=== PATIENT | female | born 1950 | race Caucasian/White ===

== ENCOUNTER 2019-04-05 20:15 | Emergency (ER) | payer OTHER ==
--- NOTE | 2019-04-05 20:27 | PDOC ---
Rapid Medical Evaluation Time Seen by Provider: 04/05/19 20:24 Medical Evaluation: Allergies Allergy/AdvReac Type Severity Reaction Status Date / Time Penicillins Allergy Verified 04/03/19 09:09 streptomycin [Streptomycin] Allergy Verified 04/03/19 09:09 04/05/19 20:24 I have performed a brief in-person evaluation of this patient. The patient presents with a chief complaint of: SOB, "i can't breathe under my R nostril, all the time i was in the hospital i was spewing up white stuff. i'm ashamed to go to [facility] bc i was there 4 times". also seen by PCP. pt reports taking Spiriva rxed [facility] PCP but reports "i can't cough up everything." Pertinent physical exam findings: anxious appearing, cough, ran effortlessly into triage room when name was called I have ordered the following: cxr The patient will proceed to the ED for further evaluation.
[2019-04-05 20:28] VITALS: BP 138/72; TEMP 98; BMI 33.1
[2019-04-05] MEDS ORDERED: ALBUTEROL SO4 2.5/IPRATROPIUM 0.5 INH SOL 3 ML VIAL.NEB. NEB ONE ×2 (23:32→23:42)
[2019-04-05 23:49] VITALS: PULSE 96
--- NOTE | 2019-04-06 00:10 | PDOC ---
History of Present Illness - General Chief Complaint: Shortness of Breath Stated Complaint: BREATHING PROBLEM Time Seen by Provider: 04/05/19 20:24 History Source: Patient Exam Limitations: No Limitations Past History - Past Medical History Allergies/Adverse Reactions: Allergies Allergy/AdvReac Type Severity Reaction Status Date / Time Penicillins Allergy Verified 04/05/19 21:22 streptomycin [Streptomycin] Allergy Verified 04/05/19 21:22 Home Medications: Ambulatory Orders Atorvastatin Ca [Lipitor] 20 mg PO HS #0 tablet 10/03/12 Clopidogrel Bisulfate [Plavix -] 75 mg PO DAILY #0 tablet 10/03/12 Metoprolol Succinate [Toprol XL -] 25 mg PO DAILY #0 tab.sr.24h 10/03/12 Levetiracetam [Keppra] 500 mg PO BID 02/10/16 Olmesartan Medoxomil [Benicar -] 20 mg PO DAILY 02/10/16 Acetaminophen [Tylenol .Regular Strength -] 650 mg PO Q6H PRN #0 tablet Clopidogrel Bisulfate [Plavix -] 75 mg PO DAILY tablet 02/11/16 Metoprolol Succinate [Toprol XL -] 25 mg PO DAILY tab.sr.24h 02/11/16 levETIRAcetam [Keppra -] 500 mg PO BID tablet 02/11/16 Cardiac Disorders: Yes CVA: (MINI STROKES) COPD: Yes Diabetes: No HTN: Yes Kidney Stones: Yes Seizures: Yes Thyroid Disease: Yes (thyroidectomy) - Surgical History Cardiac Surgery: (CAROTID ARTERY STENT) - Immunization History Immunization Up to Date: Yes - Suicide/Smoking/Psychosocial Hx Smoking Status: Yes Smoking History: Unknown if ever smoked Have you smoked in the past 12 months: No Number of Cigarettes Smoked Daily: 20 Information on smoking cessation initiated: No 'Breaking Loose' booklet given: 02/10/16 Hx Alcohol Use: No Drug/Substance Use Hx: No Substance Use Type: None *Physical Exam - Vital Signs Last Vital Signs Temp Pulse Resp BP Pulse Ox 98.0 F 96 H 20 138/72 100 04/05/19 20:25 04/05/19 23:48 04/05/19 23:48 04/05/19 20:25 04/05/19 23:48 - Physical Exam General Appearance: No: Apparent Distress HEENT: positive: Pharynx Normal. negative: Nasal Congestion, Rhinorrhea, Sinus Tenderness Respiratory/Chest: positive: Lungs Clear, Normal Breath Sounds. negative: Respiratory Distress Cardiovascular: positive: Regular Rhythm, Regular Rate, S1, S2. negative: Murmur Gastrointestinal/Abdominal: positive: Normal Bowel Sounds, Soft. negative: Tender, Distended, Guarding, Rebound Musculoskeletal: positive: Normal Inspection Extremity: negative: Pedal Edema, Calf Tenderness Neurologic: positive: Alert, Normal Mood/Affect ED Treatment Course - Medications Given in the ED: ED Medications Discontinued Medications Generic Name Dose Route Start Last Admin Trade Name Freq PRN Reason Stop Dose Admin Albuterol/Ipratropium 1 amp 04/05/19 23:32 04/05/19 23:48 Duoneb - NEB 04/05/19 23:33 1 amp ONCE ONE Administration Medical Decision Making - Medical Decision Making 68 y/o F hx of L carotid artery stent, TIA x3, HTN, DM, seizures, COPD presents as could not breath out of her R nose. States she has been hospitalized in the past for COPD and was concerned so came to ED. Denies fever, sneezing, rhinorrhea, throat pain, cp, abd pain, n/v, leg swelling. Mentions she has been using saline nasal spray and while waiting, she is now feeling better with the congestion Lungs clear CXR negative Patient demanded duoneb treatment stating she will feel more comfortable leaving after receiving the treatment On reassessment, patient mentions feeling better Stable for dc 04/06/19 00:07 *DC/Admit/Observation/Transfer Diagnosis at time of Disposition: Nasal congestion - Discharge Dispostion Disposition: HOME Condition at time of disposition: Stable Decision to Admit order: No - Referrals Referrals: Francis Acosta MD [Primary Care Provider] - 2 Days - Patient Instructions Printed Discharge Instructions: DI for Nasal Congestion Additional Instructions: Thank you for choosing [facility]. It was a pleasure taking care of you. Continue use of saline nasal spray to help with nasal congestion Follow-up with your doctor in 2 days Return to the Emergency Department if your symptoms worsen or persist, you have fever, shortness of breath, chest pain or other concerning symptoms. - Post Discharge Activity
--- NOTE | 2019-04-06 00:22 | PDOC ---
*Physical Exam - Vital Signs Last Vital Signs Temp Pulse Resp BP Pulse Ox 98.0 F 96 H 20 138/72 100 04/05/19 20:25 04/05/19 23:48 04/05/19 23:48 04/05/19 20:25 04/05/19 23:48 ED Treatment Course - Medications Given in the ED: ED Medications Discontinued Medications Generic Name Dose Route Start Last Admin Trade Name Freq PRN Reason Stop Dose Admin Albuterol/Ipratropium 1 amp 04/05/19 23:32 04/05/19 23:48 Duoneb - NEB 04/05/19 23:33 1 amp ONCE ONE Administration Medical Decision Making - Medical Decision Making 04/06/19 00:22 Case reviewed with MIKE Winston Agree with assessment and plan *DC/Admit/Observation/Transfer Diagnosis at time of Disposition: Nasal congestion - Discharge Dispostion Disposition: HOME Condition at time of disposition: Stable - Referrals Referrals: Francis Acosta MD [Primary Care Provider] - 2 Days - Patient Instructions Printed Discharge Instructions: DI for Nasal Congestion Additional Instructions: Thank you for choosing [facility]. It was a pleasure taking care of you. Continue use of saline nasal spray to help with nasal congestion Follow-up with your doctor in 2 days Return to the Emergency Department if your symptoms worsen or persist, you have fever, shortness of breath, chest pain or other concerning symptoms. - Post Discharge Activity
== END 2019-04-06 00:15 | disposition home or self-care (01) ==
LOC: JER 20:15
PROC: 3E0F7GC Introduction of Other Therapeutic Substance into Respiratory Tract, Via Natural or Artificial Opening (ICD-10-PCS; principal; 2019-04-05)
DX: J34.89 Other specified disorders of nose and nasal sinuses (principal); I25.10 Atherosclerotic heart disease of native coronary artery without angina pectoris; I10 Essential (primary) hypertension; J44.9 Chronic obstructive pulmonary disease, unspecified; G40.909 Epilepsy, unspecified, not intractable, without status epilepticus; Z86.73 Personal history of transient ischemic attack (TIA), and cerebral infarction without residual deficits; E89.0 Postprocedural hypothyroidism
CPT/HCPCS: 71046-TC-FY; 99281-25

== ENCOUNTER 2021-08-13 13:06 | Emergency (ER) | payer OTHER ==
[2021-08-13 13:17] VITALS: BP 128/94; PULSE 98; TEMP 97.8; BMI 24.7
== END 2021-08-13 14:56 | disposition home or self-care (01) ==
LOC: JERFT 13:06
DX: R22.31 Localized swelling, mass and lump, right upper limb (principal); L03.011 Cellulitis of right finger
CPT/HCPCS: 73130-TC-RT-FY; 99283-25

== ENCOUNTER 2022-04-29 13:50 | Inpatient (IN) | payer OTHER ==
[2022-04-29] MEDS ORDERED: ACETAMINOPHEN 1000 MG/100 ML BAG IVPB ONE (15:17)
[2022-04-29] MEDS ORDERED: ACETAMINOPHEN INJECTION 100 ML IVPB ONE (15:40)
[2022-04-29 16:56] LABS: CALCIUM 8.7 mg/dL (8.5-10.1)
[2022-04-29 16:57] LABS: ALBUMIN 3.4 g/dl (3.4-5.0); BLOOD UREA NITROGEN 10.4 mg/dL (7-18)
[2022-04-29 17:02] LABS: BILIRUBIN,TOTAL 0.4 mg/dL (0.2-1); TOT PROT 7.2 g/dl (6.4-8.2)
[2022-04-29 17:09] LABS: BASO % 0.4 % (0-2.0); LYMPH % 24.4 % (8-40); MCH 30.3 pg (25.7-33.7); MCHC 34.3 g/dl (32.0-36.0); MEAN CELL VOLUME 88.4 fl (80-96); MEAN PLT VOLUME 8.3 fl (7.5-11.1); MONO % 10.3 % (3.8-10.2); NEUT % 62.9 % (42.8-82.8); PLATELET COUNT 263 10^3/uL (134-434); RDW 14.5 % (11.6-15.6); WHITE BLOOD COUNT 5.3 K/mm3 (4.0-10.0)
[2022-04-29 17:15] LABS: INR 1.06 (0.83-1.09); PROTHROMBIN TIME (PATIENT) 12.2 SEC (9.7-13.0)
[2022-04-29 17:18] LABS: ACTIVATED PTT 34.7 SECONDS (25.2-36.5)
[2022-04-29] MEDS ORDERED: CEFTRIAXONE 1 GM in DEXTROSE 5%-WATER - 100 ML IVPB ONE (20:49)
[2022-04-29] MEDS ORDERED: CEFTRIAXONE 1 GM/50 ML BAG ONE (21:12)
[2022-04-29] MEDS ORDERED: POLYETHYLENE GLYCOL (HEALTHYLAX) 3350 17 GM PACKET PO PRN (22:03)
[2022-04-29] MEDS ORDERED: ALBUTEROL SO4 HFA INHALER IH PRN (22:20)
[2022-04-29] MEDS ORDERED: CARVEDILOL 6.25 MG TABLET (FP) ONE (23:40)
[2022-04-29] MEDS: CARVEDILOL 6.25 MG TABLET (FP) PO SCH (23:44)
[2022-04-30] MEDS: ACETAMINOPHEN 1000 MG/100 ML BAG IVPB PRN ×3 (02:50→21:23)
[2022-04-30] MEDS: HEPARIN NA (PORCINE) 5,000 UNITS/ML 1ML VIAL SQ SCH ×3 (06:20→21:24)
[2022-04-30] MEDS: glipiZIDE-XL 2.5 MG TAB.ER.24 PO SCH (06:20)
[2022-04-30] MEDS: INSULIN SLIDING SCALE (NOVOLOG) 1 VIAL SQ SCH ×4 (06:20→21:24)
[2022-04-30] MEDS: TAMSULOSIN HCL 0.4 MG CAP PO SCH ×2 (08:21→08:24)
[2022-04-30 09:32] LABS: BASO % 0.2 % (0-2.0); EOS % 2.1 % (0-4.5); HEMATOCRIT 37.9 % (32.4-45.2); HEMOGLOBIN 12.8 GM/dL (10.7-15.3); LYMPH % 22.5 % (8-40); MCH 30.2 pg (25.7-33.7); MCHC 33.8 g/dl (32.0-36.0); MEAN CELL VOLUME 89.2 fl (80-96); MEAN PLT VOLUME 8.6 fl (7.5-11.1); MONO % 14.4 % (3.8-10.2); NEUT % 60.8 % (42.8-82.8); PLATELET COUNT 239 10^3/uL (134-434); RBC 4.25 M/mm3 (3.60-5.2); RDW 14.4 % (11.6-15.6); WHITE BLOOD COUNT 3.9 K/mm3 (4.0-10.0)
[2022-04-30 10:16] LABS: CALCIUM 8.8 mg/dL (8.5-10.1)
[2022-04-30 10:17] LABS: BLOOD UREA NITROGEN 15.1 mg/dL (7-18); MAGNESIUM 2.5 mg/dL (1.8-2.4)
[2022-04-30 10:20] LABS: CREATININE 1.1 mg/dL (0.55-1.3)
[2022-04-30] MEDS: CARVEDILOL 6.25 MG TABLET (FP) PO SCH ×2 (11:45→21:23)
[2022-04-30] MEDS: FUROSEMIDE 40 MG TABLET (FP) PO SCH (11:45)
[2022-04-30] MEDS: CLOPIDOGREL BISULFATE 75 MG TABLET (FP) PO SCH (11:45)
[2022-04-30] MEDS: FAMOTIDINE 20 MG TABLET PO SCH (11:45)
[2022-04-30] MEDS: levETIRAcetam 500 MG TABLET (FP) PO SCH ×2 (11:45→21:23)
[2022-04-30] MEDS: TIOTROPIUM BROMIDE 2.5 MCG (SPIRIVA) RESPIMAT INHALER IH SCH (13:30)
[2022-04-30] MEDS ORDERED: traMADol HCL 50 MG TABLET PO PRN (13:43)
[2022-04-30] MEDS ORDERED: cefTRIAXone SODIUM 1 GM VIAL ONE (21:06)
[2022-04-30] MEDS ORDERED: DEXTROSE 5%-WATER - 50 ML IVPB ONE (21:06)
[2022-04-30] MEDS: ATORVASTATIN CA 20 MG TABLET (FP) PO SCH (21:23)
[2022-04-30] MEDS: DIVALPROEX SODIUM 250 MG TABLET E.C. PO SCH (21:23)
[2022-04-30] MEDS: CEFTRIAXONE 1 GM in DEXTROSE 5%-WATER - 50 ML IVPB SCH (21:25)
[2022-04-30] MEDS ORDERED: ACETAMINOPHEN 325 MG TABLET (FP) PO PRN (22:03)
[2022-05-01] MEDS: HEPARIN NA (PORCINE) 5,000 UNITS/ML 1ML VIAL SQ SCH ×3 (06:04→21:46)
[2022-05-01] MEDS: INSULIN SLIDING SCALE (NOVOLOG) 1 VIAL SQ SCH ×4 (06:04→21:46)
[2022-05-01] MEDS: glipiZIDE-XL 2.5 MG TAB.ER.24 PO SCH (06:04)
[2022-05-01] MEDS: TAMSULOSIN HCL 0.4 MG CAP PO SCH (08:22)
[2022-05-01] MEDS: CLOPIDOGREL BISULFATE 75 MG TABLET (FP) PO SCH (09:11)
[2022-05-01] MEDS: FUROSEMIDE 40 MG TABLET (FP) PO SCH (09:11)
[2022-05-01] MEDS: levETIRAcetam 500 MG TABLET (FP) PO SCH ×2 (09:11→21:46)
[2022-05-01] MEDS: FAMOTIDINE 20 MG TABLET PO SCH (09:11)
[2022-05-01] MEDS: CARVEDILOL 6.25 MG TABLET (FP) PO SCH ×2 (09:11→21:45)
[2022-05-01] MEDS: TIOTROPIUM BROMIDE 2.5 MCG (SPIRIVA) RESPIMAT INHALER IH SCH (09:13)
[2022-05-01] MEDS ORDERED: cefTRIAXone SODIUM 1 GM VIAL ONE (21:36)
[2022-05-01] MEDS ORDERED: DEXTROSE 5%-WATER - 50 ML IVPB ONE (21:36)
[2022-05-01] MEDS: DIVALPROEX SODIUM 250 MG TABLET E.C. PO SCH (21:46)
[2022-05-01] MEDS: ATORVASTATIN CA 20 MG TABLET (FP) PO SCH (21:46)
[2022-05-01] MEDS: CEFTRIAXONE 1 GM in DEXTROSE 5%-WATER - 50 ML IVPB SCH (21:46)
[2022-05-02] MEDS: INSULIN SLIDING SCALE (NOVOLOG) 1 VIAL SQ SCH ×4 (06:22→21:47)
[2022-05-02] MEDS: HEPARIN NA (PORCINE) 5,000 UNITS/ML 1ML VIAL SQ SCH ×2 (06:23→14:19)
[2022-05-02] MEDS: glipiZIDE-XL 2.5 MG TAB.ER.24 PO SCH (06:23)
[2022-05-02] MEDS: TAMSULOSIN HCL 0.4 MG CAP PO SCH (08:13)
[2022-05-02] MEDS: CARVEDILOL 6.25 MG TABLET (FP) PO SCH ×2 (10:53→21:46)
[2022-05-02] MEDS: FAMOTIDINE 20 MG TABLET PO SCH (10:53)
[2022-05-02] MEDS: FUROSEMIDE 40 MG TABLET (FP) PO SCH (10:53)
[2022-05-02] MEDS: CLOPIDOGREL BISULFATE 75 MG TABLET (FP) PO SCH (10:53)
[2022-05-02] MEDS: levETIRAcetam 500 MG TABLET (FP) PO SCH ×2 (10:53→21:46)
[2022-05-02] MEDS: TIOTROPIUM BROMIDE 2.5 MCG (SPIRIVA) RESPIMAT INHALER IH SCH (10:54)
[2022-05-02] MEDS: DIVALPROEX SODIUM 250 MG TABLET E.C. PO SCH (21:46)
[2022-05-02] MEDS: ATORVASTATIN CA 20 MG TABLET (FP) PO SCH (21:46)
[2022-05-03] MEDS: INSULIN SLIDING SCALE (NOVOLOG) 1 VIAL SQ SCH ×4 (06:50→21:51)
[2022-05-03] MEDS: glipiZIDE-XL 2.5 MG TAB.ER.24 PO SCH (06:51)
[2022-05-03] MEDS: FAMOTIDINE 20 MG TABLET PO SCH (10:32)
[2022-05-03] MEDS: levETIRAcetam 500 MG TABLET (FP) PO SCH ×2 (10:32→21:50)
[2022-05-03] MEDS: CARVEDILOL 6.25 MG TABLET (FP) PO SCH ×2 (10:32→21:50)
[2022-05-03] MEDS: CLOPIDOGREL BISULFATE 75 MG TABLET (FP) PO SCH (10:32)
[2022-05-03] MEDS: FUROSEMIDE 40 MG TABLET (FP) PO SCH (10:32)
[2022-05-03] MEDS: TAMSULOSIN HCL 0.4 MG CAP PO SCH (10:32)
[2022-05-03] MEDS: TIOTROPIUM BROMIDE 2.5 MCG (SPIRIVA) RESPIMAT INHALER IH SCH (10:33)
[2022-05-03] MEDS: ATORVASTATIN CA 20 MG TABLET (FP) PO SCH (21:50)
[2022-05-03] MEDS: DIVALPROEX SODIUM 250 MG TABLET E.C. PO SCH (21:51)
[2022-05-04] MEDS: INSULIN SLIDING SCALE (NOVOLOG) 1 VIAL SQ SCH ×3 (06:04→16:54)
[2022-05-04] MEDS: glipiZIDE-XL 2.5 MG TAB.ER.24 PO SCH (06:23)
[2022-05-04] MEDS: CLOPIDOGREL BISULFATE 75 MG TABLET (FP) PO SCH (10:14)
[2022-05-04] MEDS: levETIRAcetam 500 MG TABLET (FP) PO SCH ×2 (10:14→21:20)
[2022-05-04] MEDS: TIOTROPIUM BROMIDE 2.5 MCG (SPIRIVA) RESPIMAT INHALER IH SCH (10:14)
[2022-05-04] MEDS: TAMSULOSIN HCL 0.4 MG CAP PO SCH (10:14)
[2022-05-04] MEDS: FAMOTIDINE 20 MG TABLET PO SCH (10:14)
[2022-05-04] MEDS: CARVEDILOL 6.25 MG TABLET (FP) PO SCH ×2 (10:14→21:20)
[2022-05-04] MEDS: FUROSEMIDE 40 MG TABLET (FP) PO SCH (10:14)
[2022-05-04 13:02] LABS: BASO % 0.4 % (0-2.0); EOS % 1.5 % (0-4.5); HEMATOCRIT 37.3 % (32.4-45.2); HEMOGLOBIN 12.8 GM/dL (10.7-15.3); LYMPH % 23.2 % (8-40); MCH 30.7 pg (25.7-33.7); MCHC 34.4 g/dl (32.0-36.0); MEAN CELL VOLUME 89.3 fl (80-96); MEAN PLT VOLUME 7.9 fl (7.5-11.1); MONO % 10.7 % (3.8-10.2); NEUT % 64.2 % (42.8-82.8); PLATELET COUNT 304 10^3/uL (134-434); RBC 4.18 M/mm3 (3.60-5.2); RDW 14.2 % (11.6-15.6); WHITE BLOOD COUNT 5.4 K/mm3 (4.0-10.0)
[2022-05-04 13:43] LABS: ALBUMIN 3.5 g/dl (3.4-5.0)
[2022-05-04 13:44] LABS: BLOOD UREA NITROGEN 19.7 mg/dL (7-18)
[2022-05-04 13:47] LABS: CREATININE 0.7 mg/dL (0.55-1.3)
[2022-05-04 13:48] LABS: BILIRUBIN,TOTAL 0.3 mg/dL (0.2-1); TOT PROT 7.4 g/dl (6.4-8.2)
[2022-05-04 13:52] LABS: ERYTHROCYTE SEDIMENTATION RATE 23 mm/hr (0-30)
[2022-05-04] MEDS: ATORVASTATIN CA 20 MG TABLET (FP) PO SCH (21:20)
[2022-05-04] MEDS: DIVALPROEX SODIUM 250 MG TABLET E.C. PO SCH (21:20)
[2022-05-05] MEDS: glipiZIDE-XL 2.5 MG TAB.ER.24 PO SCH (06:49)
[2022-05-05] MEDS: INSULIN SLIDING SCALE (NOVOLOG) 1 VIAL SQ SCH ×2 (06:49→17:56)
[2022-05-05] MEDS: FAMOTIDINE 20 MG TABLET PO SCH (09:39)
[2022-05-05] MEDS: TAMSULOSIN HCL 0.4 MG CAP PO SCH (09:39)
[2022-05-05] MEDS: levETIRAcetam 500 MG TABLET (FP) PO SCH ×2 (09:40→22:09)
[2022-05-05] MEDS: TIOTROPIUM BROMIDE 2.5 MCG (SPIRIVA) RESPIMAT INHALER IH SCH (09:40)
[2022-05-05] MEDS: CARVEDILOL 6.25 MG TABLET (FP) PO SCH (11:08)
[2022-05-05] MEDS: FUROSEMIDE 40 MG TABLET (FP) PO SCH (11:14)
[2022-05-05] MEDS: CLOPIDOGREL BISULFATE 75 MG TABLET (FP) PO SCH (11:14)
[2022-05-05] MEDS ORDERED: CARVEDILOL 6.25 MG TABLET (FP) PO SCH (14:20)
[2022-05-05] MEDS ORDERED: FUROSEMIDE 40 MG TABLET (FP) PO SCH (14:21)
[2022-05-05] MEDS: ATORVASTATIN CA 20 MG TABLET (FP) PO SCH (22:09)
[2022-05-05] MEDS: DIVALPROEX SODIUM 250 MG TABLET E.C. PO SCH (22:09)
[2022-05-06] MEDS: INSULIN SLIDING SCALE (NOVOLOG) 1 VIAL SQ SCH ×2 (06:07→17:34)
[2022-05-06] MEDS: glipiZIDE-XL 2.5 MG TAB.ER.24 PO SCH (06:09)
[2022-05-06] MEDS ORDERED: LIDOCAINE HCL/PF 2% SDV 5ML VIAL ONE (07:05)
[2022-05-06] MEDS ORDERED: SUCCINYLCHOLINE CHLORIDE 200 MG/10 ML SYRINGE ONE (07:06)
[2022-05-06] MEDS ORDERED: MIDAZOLAM HCL 2 MG/2 ML SINGLE DOSE VIAL ONE (07:06)
[2022-05-06] MEDS ORDERED: PROPOFOL 20 ML ONE (07:06)
[2022-05-06] MEDS ORDERED: LIDOCAINE HCL 1%, 10 MG/ML (20ML VIAL) ONE (07:14)
[2022-05-06] MEDS ORDERED: HEPARIN NA (PORCINE) 5,000 UNITS/ML 1ML VIAL ONE (07:14)
[2022-05-06] MEDS ORDERED: CLINDAMYCIN 600 MG PREMIX BAG IVPB ONE (08:20)
[2022-05-06] MEDS ORDERED: CLINDAMYCIN PHOSPHATE 600 MG/4 ML VIAL ONE (08:26)
[2022-05-06] MEDS: TAMSULOSIN HCL 0.4 MG CAP PO SCH (08:30)
[2022-05-06] MEDS ORDERED: LIDOCAINE HCL 1%, 10 MG/ML (20ML VIAL) NR ONE ×2 (08:32)
[2022-05-06] MEDS ORDERED: HEPARIN NA (PORCINE) 5,000 UNITS/ML 1ML VIAL SQ ONE (08:36)
[2022-05-06] MEDS ORDERED: POLYETHYLENE GLYCOL (HEALTHYLAX) 3350 17 GM PACKET PO PRN (09:15)
[2022-05-06] MEDS ORDERED: ACETAMINOPHEN 325 MG TABLET (FP) PO PRN (09:15)
[2022-05-06] MEDS ORDERED: ALBUTEROL SO4 HFA INHALER IH PRN (09:15)
[2022-05-06] MEDS: FUROSEMIDE 40 MG TABLET (FP) PO SCH (10:58)
[2022-05-06] MEDS ORDERED: ONDANSETRON 4 MG/2 ML VIAL IVPUSH PRN (10:59)
[2022-05-06] MEDS: levETIRAcetam 500 MG TABLET (FP) PO SCH ×2 (10:59→21:05)
[2022-05-06] MEDS: CARVEDILOL 6.25 MG TABLET (FP) PO SCH ×2 (10:59→21:04)
[2022-05-06] MEDS: TIOTROPIUM BROMIDE 2.5 MCG (SPIRIVA) RESPIMAT INHALER IH SCH (11:00)
[2022-05-06] MEDS: FAMOTIDINE 20 MG TABLET PO SCH (11:04)
[2022-05-06] MEDS: LACTATED RINGERS SOLUTION 1,000 ML IV SCH ×2 (11:36→19:56)
[2022-05-06] MEDS: DIVALPROEX SODIUM 250 MG TABLET E.C. PO SCH (21:05)
[2022-05-06] MEDS: ATORVASTATIN CA 20 MG TABLET (FP) PO SCH (21:05)
[2022-05-07] MEDS: INSULIN SLIDING SCALE (NOVOLOG) 1 VIAL SQ SCH (07:14)
[2022-05-07] MEDS: glipiZIDE-XL 2.5 MG TAB.ER.24 PO SCH (07:15)
[2022-05-07] MEDS: TAMSULOSIN HCL 0.4 MG CAP PO SCH (10:43)
[2022-05-07] MEDS: FAMOTIDINE 20 MG TABLET PO SCH (10:44)
[2022-05-07] MEDS: levETIRAcetam 500 MG TABLET (FP) PO SCH ×2 (10:44→21:30)
[2022-05-07] MEDS: CARVEDILOL 6.25 MG TABLET (FP) PO SCH ×2 (10:44→21:30)
[2022-05-07] MEDS: FUROSEMIDE 40 MG TABLET (FP) PO SCH (10:44)
[2022-05-07] MEDS: TIOTROPIUM BROMIDE 2.5 MCG (SPIRIVA) RESPIMAT INHALER IH SCH (10:45)
[2022-05-07] MEDS ORDERED: levETIRAcetam 500 MG TABLET (FP) PO SCH (14:00)
[2022-05-07] MEDS: ATORVASTATIN CA 20 MG TABLET (FP) PO SCH (21:30)
[2022-05-07] MEDS: DIVALPROEX SODIUM 250 MG TABLET E.C. PO SCH (21:30)
[2022-05-08] MEDS: glipiZIDE-XL 2.5 MG TAB.ER.24 PO SCH (07:14)
[2022-05-08] MEDS: levETIRAcetam 500 MG TABLET (FP) PO SCH ×2 (09:31→22:06)
[2022-05-08] MEDS: TAMSULOSIN HCL 0.4 MG CAP PO SCH (09:32)
[2022-05-08] MEDS: FAMOTIDINE 20 MG TABLET PO SCH (09:33)
[2022-05-08] MEDS: CARVEDILOL 6.25 MG TABLET (FP) PO SCH ×2 (09:33→22:06)
[2022-05-08] MEDS: FUROSEMIDE 40 MG TABLET (FP) PO SCH (09:33)
[2022-05-08] MEDS: TIOTROPIUM BROMIDE 2.5 MCG (SPIRIVA) RESPIMAT INHALER IH SCH (13:13)
[2022-05-08] MEDS ORDERED: levETIRAcetam 500 MG TABLET (FP) PO ONE ×2 (14:30)
[2022-05-08] MEDS ORDERED: LORazepam 2 MG/ML SDV VIAL IVPUSH PRN (16:12)
[2022-05-08] MEDS: ATORVASTATIN CA 20 MG TABLET (FP) PO SCH (22:06)
[2022-05-08] MEDS: DIVALPROEX SODIUM 250 MG TABLET E.C. PO SCH (22:06)
[2022-05-09] MEDS: glipiZIDE-XL 2.5 MG TAB.ER.24 PO SCH (06:00)
[2022-05-09] MEDS: TAMSULOSIN HCL 0.4 MG CAP PO SCH (09:49)
[2022-05-09] MEDS: CARVEDILOL 6.25 MG TABLET (FP) PO SCH ×2 (09:49→21:14)
[2022-05-09] MEDS: FAMOTIDINE 20 MG TABLET PO SCH (09:49)
[2022-05-09] MEDS: FUROSEMIDE 40 MG TABLET (FP) PO SCH (09:49)
[2022-05-09] MEDS: levETIRAcetam 500 MG TABLET (FP) PO SCH ×2 (09:49→21:14)
[2022-05-09] MEDS: TIOTROPIUM BROMIDE 2.5 MCG (SPIRIVA) RESPIMAT INHALER IH SCH (09:51)
[2022-05-09] MEDS: DIVALPROEX SODIUM 500 MG TABLET E.C. PO SCH ×2 (13:08→21:14)
[2022-05-09] MEDS: ATORVASTATIN CA 20 MG TABLET (FP) PO SCH (21:14)
[2022-05-10] MEDS: glipiZIDE-XL 2.5 MG TAB.ER.24 PO SCH (06:08)
[2022-05-10 09:47] LABS: BASO % 0.8 % (0-2.0); EOS % 1.3 % (0-4.5); HEMATOCRIT 40.4 % (32.4-45.2); HEMOGLOBIN 13.5 GM/dL (10.7-15.3); LYMPH % 27.7 % (8-40); MCH 29.9 pg (25.7-33.7); MCHC 33.4 g/dl (32.0-36.0); MEAN CELL VOLUME 89.6 fl (80-96); MEAN PLT VOLUME 8.2 fl (7.5-11.1); MONO % 7.8 % (3.8-10.2); NEUT % 62.4 % (42.8-82.8); PLATELET COUNT 345 10^3/uL (134-434); RBC 4.51 M/mm3 (3.60-5.2); RDW 14.4 % (11.6-15.6); WHITE BLOOD COUNT 5.8 K/mm3 (4.0-10.0)
[2022-05-10 10:04] LABS: INR 1.03 (0.83-1.09); PROTHROMBIN TIME (PATIENT) 11.8 SEC (9.7-13.0)
[2022-05-10 10:06] LABS: CALCIUM 9.2 mg/dL (8.5-10.1)
[2022-05-10 10:07] LABS: ALBUMIN 3.4 g/dl (3.4-5.0); BLOOD UREA NITROGEN 18.1 mg/dL (7-18)
[2022-05-10 10:10] LABS: CREATININE 0.8 mg/dL (0.55-1.3)
[2022-05-10 10:11] LABS: BILIRUBIN,TOTAL 0.4 mg/dL (0.2-1); TOT PROT 7.4 g/dl (6.4-8.2)
[2022-05-10] MEDS: FUROSEMIDE 40 MG TABLET (FP) PO SCH (11:06)
[2022-05-10] MEDS: DIVALPROEX SODIUM 500 MG TABLET E.C. PO SCH ×2 (11:06→21:35)
[2022-05-10] MEDS: FAMOTIDINE 20 MG TABLET PO SCH (11:06)
[2022-05-10] MEDS: TAMSULOSIN HCL 0.4 MG CAP PO SCH (11:06)
[2022-05-10] MEDS: CARVEDILOL 6.25 MG TABLET (FP) PO SCH ×2 (11:06→21:35)
[2022-05-10] MEDS: levETIRAcetam 500 MG TABLET (FP) PO SCH ×2 (11:06→21:35)
[2022-05-10] MEDS: TIOTROPIUM BROMIDE 2.5 MCG (SPIRIVA) RESPIMAT INHALER IH SCH (12:38)
[2022-05-10] MEDS: ATORVASTATIN CA 20 MG TABLET (FP) PO SCH (21:35)
[2022-05-11] MEDS: glipiZIDE-XL 2.5 MG TAB.ER.24 PO SCH (06:07)
[2022-05-11] MEDS: FUROSEMIDE 40 MG TABLET (FP) PO SCH (10:13)
[2022-05-11] MEDS: CARVEDILOL 6.25 MG TABLET (FP) PO SCH ×2 (10:14→21:46)
[2022-05-11] MEDS: FAMOTIDINE 20 MG TABLET PO SCH (10:14)
[2022-05-11] MEDS: DIVALPROEX SODIUM 500 MG TABLET E.C. PO SCH ×2 (10:14→21:46)
[2022-05-11] MEDS: levETIRAcetam 500 MG TABLET (FP) PO SCH ×2 (10:14→21:46)
[2022-05-11] MEDS: TAMSULOSIN HCL 0.4 MG CAP PO SCH (10:14)
[2022-05-11] MEDS: TIOTROPIUM BROMIDE 2.5 MCG (SPIRIVA) RESPIMAT INHALER IH SCH (10:16)
[2022-05-11] MEDS ORDERED: LIDOCAINE HCL 1%, 10 MG/ML (20ML VIAL) ONE ×2 (14:25→14:28)
[2022-05-11] MEDS ORDERED: BUPIVACAINE HCL/PF 0.25% (2.5MG/ML) 10 ML VIAL ONE (14:25)
[2022-05-11] MEDS ORDERED: MIDAZOLAM HCL 2 MG/2 ML SINGLE DOSE VIAL ONE (15:00)
[2022-05-11] MEDS ORDERED: LIDOCAINE HCL 1%, 10 MG/ML (20ML VIAL) NR ONE (15:08)
[2022-05-11] MEDS ORDERED: ALBUTEROL SO4 HFA INHALER IH PRN (18:16)
[2022-05-11] MEDS ORDERED: ACETAMINOPHEN 325 MG TABLET (FP) PO PRN (18:16)
[2022-05-11] MEDS ORDERED: POLYETHYLENE GLYCOL (HEALTHYLAX) 3350 17 GM PACKET PO PRN (18:16)
[2022-05-11] MEDS ORDERED: ATORVASTATIN CA 20 MG TABLET (FP) PO SCH (22:00)
[2022-05-12] MEDS ORDERED: glipiZIDE-XL 2.5 MG TAB.ER.24 PO SCH (07:00)
[2022-05-12] MEDS ORDERED: TAMSULOSIN HCL 0.4 MG CAP PO SCH (08:30)
[2022-05-12] MEDS: DIVALPROEX SODIUM 500 MG TABLET E.C. PO SCH (09:51)
[2022-05-12] MEDS: levETIRAcetam 500 MG TABLET (FP) PO SCH (09:51)
[2022-05-12] MEDS: CARVEDILOL 6.25 MG TABLET (FP) PO SCH (09:51)
[2022-05-12] MEDS ORDERED: FUROSEMIDE 40 MG TABLET (FP) PO SCH (10:00)
[2022-05-12] MEDS ORDERED: FAMOTIDINE 20 MG TABLET PO SCH (10:00)
[2022-05-12] MEDS ORDERED: TIOTROPIUM BROMIDE 2.5 MCG (SPIRIVA) RESPIMAT INHALER IH SCH (10:00)
[2022-05-12 11:52] VITALS: BMI 25.8
[2022-05-12 15:00] VITALS: BP 101/55; PULSE 85; TEMP 98.3
== END 2022-05-12 14:22 | disposition home or self-care (01) | DRG 623 ==
LOC: JER 13:50 → JERBED 17:25 → J5S 04-30 00:07
PROVIDERS: ADMIT Internal Medicine; ATTEND Internal Medicine
PROC: B40DYZZ Plain Radiography of Aorta and Bilateral Lower Extremity Arteries using Other Contrast (ICD-10-PCS; 2022-05-06)
PROC: 0QBQ0ZX Excision of Right Toe Phalanx, Open Approach, Diagnostic (ICD-10-PCS; 2022-05-11)
PROC: 0JBQ0ZZ Excision of Right Foot Subcutaneous Tissue and Fascia, Open Approach (ICD-10-PCS; principal; 2022-05-11 14:30)
DX: E11.69 Type 2 diabetes mellitus with other specified complication (principal); M86.9 Osteomyelitis, unspecified; L03.031 Cellulitis of right toe; L97.519 Non-pressure chronic ulcer of other part of right foot with unspecified severity; E11.51 Type 2 diabetes mellitus with diabetic peripheral angiopathy without gangrene; I25.10 Atherosclerotic heart disease of native coronary artery without angina pectoris; I10 Essential (primary) hypertension; I50.9 Heart failure, unspecified; J44.9 Chronic obstructive pulmonary disease, unspecified; E03.9 Hypothyroidism, unspecified; R56.9 Unspecified convulsions; F17.210 Nicotine dependence, cigarettes, uncomplicated; Z88.1 Allergy status to other antibiotic agents; Z88.0 Allergy status to penicillin
CPT/HCPCS: 0241U-QW; 36415; 70450-TC; 71045-TC-FY; 73030-TC-RT-FY; 73630-TC-RT-FY; 73718-TC-RT; 75635-TC; 76000-TC-FY; 80048; 80053; 80164; 80177; 82962; 83735; 85025; 85610; 85651; 85730; 86140; 86850; 86900; 86901; 87040; 87070; 87075; 87102; 87116; 87205; 87210; 88304-TC; 93005; 93010; 94760; 95816; 99285-25; J1644; Q9967

== ENCOUNTER 2022-05-27 14:41 | Inpatient (IN) | payer OTHER ==
[2022-05-27] MEDS ORDERED: VANCOMYCIN 1 GM in D5W (PRE-DOCKED) 1,000 MG/250 ML IVPB ONE (15:33)
[2022-05-27] MEDS ORDERED: CEFEPIME HCL/D5W 1 GM/50 ML BAG IVPB ONE (15:34)
[2022-05-27] MEDS ORDERED: CEFEPIME 1 GM/100 ML BAG IVPB ONE (15:49)
[2022-05-27 17:35] LABS: BASO % 0.3 % (0-2.0); EOS % 1.4 % (0-4.5); HEMATOCRIT 39.6 % (32.4-45.2); HEMOGLOBIN 13.4 GM/dL (10.7-15.3); LYMPH % 22.1 % (8-40); MCH 30.4 pg (25.7-33.7); MCHC 33.8 g/dl (32.0-36.0); MEAN CELL VOLUME 89.9 fl (80-96); MEAN PLT VOLUME 8.1 fl (7.5-11.1); MONO % 10.9 % (3.8-10.2); NEUT % 65.3 % (42.8-82.8); PLATELET COUNT 305 10^3/uL (134-434); RDW 14.6 % (11.6-15.6); WHITE BLOOD COUNT 6.2 K/mm3 (4.0-10.0)
[2022-05-27] MEDS ORDERED: ACETAMINOPHEN 325 MG TABLET (FP) PO PRN (17:42)
[2022-05-27 17:52] LABS: INR 0.97 (0.83-1.09); PROTHROMBIN TIME (PATIENT) 11.2 SEC (9.7-13.0)
[2022-05-27 17:59] LABS: CALCIUM 9.2 mg/dL (8.5-10.1)
[2022-05-27 18:00] LABS: ALBUMIN 3.7 g/dl (3.4-5.0); BLOOD UREA NITROGEN 13.7 mg/dL (7-18)
[2022-05-27 18:03] LABS: CREATININE 0.7 mg/dL (0.55-1.3)
[2022-05-27 18:05] LABS: BILIRUBIN,TOTAL 0.3 mg/dL (0.2-1); TOT PROT 7.8 g/dl (6.4-8.2)
[2022-05-27] MEDS ORDERED: VANCOMYCIN 1 GRAM (PRE-DOCKED) 1,000 MG/250 ML BAG IVPB ONE (18:23)
[2022-05-27 18:33] LABS: ERYTHROCYTE SEDIMENTATION RATE 28 mm/hr (0-30)
[2022-05-27] MEDS ORDERED: levETIRAcetam 500 MG TABLET (FP) PO SCH (22:00)
[2022-05-27] MEDS ORDERED: ATORVASTATIN CA 20 MG TABLET (FP) PO SCH (22:00)
[2022-05-27] MEDS: CARVEDILOL 6.25 MG TABLET (FP) PO SCH (23:52)
[2022-05-27] MEDS: levETIRAcetam 500 MG TABLET (FP) PO SCH (23:52)
[2022-05-27] MEDS: SACUBITRIL/VALSARTAN 24 MG-26 MG TABLET PO SCH (23:52)
[2022-05-27] MEDS: DIVALPROEX SODIUM 250 MG TABLET E.C. PO SCH (23:52)
[2022-05-28 01:08] VITALS: BMI 26.1
[2022-05-28] MEDS: glipiZIDE-XL 2.5 MG TAB.ER.24 PO SCH (06:55)
[2022-05-28] MEDS: levETIRAcetam 500 MG TABLET (FP) PO SCH ×2 (09:03→22:06)
[2022-05-28] MEDS: ASPIRIN 81 MG CHEWABLE TABLETS PO SCH (09:03)
[2022-05-28] MEDS: FUROSEMIDE 40 MG TABLET (FP) PO SCH (09:03)
[2022-05-28] MEDS: CARVEDILOL 6.25 MG TABLET (FP) PO SCH ×2 (09:04→22:06)
[2022-05-28] MEDS: TAMSULOSIN HCL 0.4 MG CAP PO SCH (09:04)
[2022-05-28] MEDS: HEPARIN NA (PORCINE) 5,000 UNITS/ML 1ML VIAL SQ SCH ×5 (09:04→22:46)
[2022-05-28] MEDS: CLOPIDOGREL BISULFATE 75 MG TABLET (FP) PO SCH (09:04)
[2022-05-28] MEDS: SACUBITRIL/VALSARTAN 24 MG-26 MG TABLET PO SCH ×2 (09:32→22:06)
[2022-05-28] MEDS ORDERED: DEXTROSE 5%-WATER 100 ML IVPB ONE (13:00)
[2022-05-28] MEDS: CEFTRIAXONE 2 GM in DEXTROSE 5%-WATER 2 GM/100 ML BAG IVPB SCH (13:02)
[2022-05-28] MEDS: DAPTOMYCIN 400 MG in SODIUM CHLORIDE 50 ML IVPB SCH (13:53)
[2022-05-28] MEDS: DIVALPROEX SODIUM 250 MG TABLET E.C. PO SCH (22:07)
[2022-05-29] MEDS: glipiZIDE-XL 2.5 MG TAB.ER.24 PO SCH (06:36)
[2022-05-29] MEDS: TAMSULOSIN HCL 0.4 MG CAP PO SCH (08:26)
[2022-05-29] MEDS ORDERED: DEXTROSE 5%-WATER 100 ML IVPB ONE (10:08)
[2022-05-29] MEDS: CEFTRIAXONE 2 GM in DEXTROSE 5%-WATER 2 GM/100 ML BAG IVPB SCH (10:13)
[2022-05-29] MEDS: DAPTOMYCIN 400 MG in SODIUM CHLORIDE 50 ML IVPB SCH (10:13)
[2022-05-29] MEDS: levETIRAcetam 500 MG TABLET (FP) PO SCH ×2 (10:14→21:32)
[2022-05-29] MEDS: ASPIRIN 81 MG CHEWABLE TABLETS PO SCH (10:14)
[2022-05-29] MEDS: FUROSEMIDE 40 MG TABLET (FP) PO SCH (10:15)
[2022-05-29] MEDS: SACUBITRIL/VALSARTAN 24 MG-26 MG TABLET PO SCH ×2 (10:15→21:32)
[2022-05-29] MEDS: CARVEDILOL 6.25 MG TABLET (FP) PO SCH ×2 (10:15→21:31)
[2022-05-29] MEDS: CLOPIDOGREL BISULFATE 75 MG TABLET (FP) PO SCH (10:15)
[2022-05-29] MEDS: HEPARIN NA (PORCINE) 5,000 UNITS/ML 1ML VIAL SQ SCH ×2 (11:06→22:37)
[2022-05-29] MEDS: DIVALPROEX SODIUM 250 MG TABLET E.C. PO SCH (21:31)
[2022-05-30] MEDS ORDERED: MELATONIN 5 MG TABLETS PO PRN (02:44)
[2022-05-30] MEDS: glipiZIDE-XL 2.5 MG TAB.ER.24 PO SCH (06:12)
[2022-05-30] MEDS ORDERED: DEXTROSE 5%-WATER 100 ML IVPB ONE (09:31)
[2022-05-30] MEDS: levETIRAcetam 500 MG TABLET (FP) PO SCH (09:41)
[2022-05-30] MEDS: CLOPIDOGREL BISULFATE 75 MG TABLET (FP) PO SCH (09:41)
[2022-05-30] MEDS: TAMSULOSIN HCL 0.4 MG CAP PO SCH (09:41)
[2022-05-30] MEDS: HEPARIN NA (PORCINE) 5,000 UNITS/ML 1ML VIAL SQ SCH ×2 (09:41→09:43)
[2022-05-30] MEDS: CARVEDILOL 6.25 MG TABLET (FP) PO SCH (09:41)
[2022-05-30] MEDS: DAPTOMYCIN 400 MG in SODIUM CHLORIDE 50 ML IVPB SCH (09:41)
[2022-05-30] MEDS: FUROSEMIDE 40 MG TABLET (FP) PO SCH (09:41)
[2022-05-30] MEDS: ASPIRIN 81 MG CHEWABLE TABLETS PO SCH (09:41)
[2022-05-30] MEDS: CEFTRIAXONE 2 GM in DEXTROSE 5%-WATER 2 GM/100 ML BAG IVPB SCH (09:42)
[2022-05-30] MEDS: SACUBITRIL/VALSARTAN 24 MG-26 MG TABLET PO SCH (09:42)
[2022-05-30 14:49] VITALS: BP 100/54; PULSE 96; TEMP 97.8
== END 2022-05-30 15:02 | disposition home or self-care (01) | DRG 638 ==
LOC: JER 14:41 → JERBED 18:42 → J5S 23:25
PROVIDERS: ADMIT Internal Medicine; ATTEND Internal Medicine
PROC: 02HV33Z Insertion of Infusion Device into Superior Vena Cava, Percutaneous Approach (ICD-10-PCS; principal; 2022-05-28)
PROC: B548ZZA Ultrasonography of Superior Vena Cava, Guidance (ICD-10-PCS; 2022-05-28)
DX: E11.69 Type 2 diabetes mellitus with other specified complication (principal); M86.8X7 Other osteomyelitis, ankle and foot; I25.10 Atherosclerotic heart disease of native coronary artery without angina pectoris; E11.51 Type 2 diabetes mellitus with diabetic peripheral angiopathy without gangrene; J44.9 Chronic obstructive pulmonary disease, unspecified; E03.9 Hypothyroidism, unspecified; I11.0 Hypertensive heart disease with heart failure; I50.9 Heart failure, unspecified; Z86.73 Personal history of transient ischemic attack (TIA), and cerebral infarction without residual deficits; G40.909 Epilepsy, unspecified, not intractable, without status epilepticus; L03.031 Cellulitis of right toe; F17.210 Nicotine dependence, cigarettes, uncomplicated; Z79.84 Long term (current) use of oral hypoglycemic drugs
CPT/HCPCS: 0241U-QW; 36415; 36569; 73630-TC-RT-FY; 80053; 82962; 85025; 85610; 85651; 86140; 86850; 86900; 86901; 87040; 93005; 93010; 99285-25; G0463-25; J0878; J1644

== ENCOUNTER 2022-05-31 15:16 | Day surgery (SDC) | payer OTHER ==
[2022-05-31 15:39] VITALS: TEMP 100.1
[2022-05-31] MEDS ORDERED: DEXTROSE 5%-WATER 100 ML IVPB ONE (15:50)
[2022-05-31] MEDS ORDERED: CEFTRIAXONE 2 GM in DEXTROSE 5%-WATER 100 ML IVPB ONE ×2 (16:00→17:00)
[2022-05-31] MEDS ORDERED: DAPTOMYCIN 400 MG in SODIUM CHLORIDE 50 ML IVPB ONE ×2 (16:00→17:30)
[2022-05-31 17:11] VITALS: BP 95/50; PULSE 97
== END 2022-05-31 17:12 | disposition home or self-care (01) ==
LOC: FINFUSION 15:16 → FM/S 15:23 → FINFUSION 17:12
PROVIDERS: ATTEND Internal Medicine
DX: M86.679 Other chronic osteomyelitis, unspecified ankle and foot (principal)
CPT/HCPCS: 96365; 96367; J0878

== ENCOUNTER 2022-06-01 09:53 | Day surgery (SDC) | payer OTHER ==
[2022-06-01] MEDS ORDERED: SODIUM CHLORIDE 100 ML IVPB ONE (10:20)
[2022-06-01] MEDS ORDERED: CEFTRIAXONE 2 GM in DEXTROSE 5%-WATER - 100 ML IVPB ONE (10:30)
[2022-06-01] MEDS ORDERED: CEFTRIAXONE 2 GM in SODIUM CHLORIDE 100 ML IVPB ONE (10:30)
[2022-06-01] MEDS ORDERED: DAPTOMYCIN 400 MG in SODIUM CHLORIDE 50 ML IVPB ONE (11:00)
[2022-06-01 11:26] VITALS: BP 94/46; PULSE 86; TEMP 98.4
== END 2022-06-01 11:34 | disposition home or self-care (01) ==
LOC: FINFUSION 09:53 → FM/S 09:55 → FINFUSION 11:34
PROVIDERS: ATTEND Internal Medicine
DX: M86.679 Other chronic osteomyelitis, unspecified ankle and foot (principal)
CPT/HCPCS: 96365; 96367; J0878

== ENCOUNTER 2022-06-02 10:00 | Day surgery (SDC) | payer OTHER ==
[2022-06-02] MEDS ORDERED: SODIUM CHLORIDE 100 ML IVPB ONE (10:11)
[2022-06-02] MEDS ORDERED: CEFTRIAXONE 2 GM in SODIUM CHLORIDE 100 ML IVPB ONE (10:30)
[2022-06-02] MEDS ORDERED: DAPTOMYCIN 400 MG in SODIUM CHLORIDE 50 ML IVPB ONE (11:00)
[2022-06-02 11:21] VITALS: BP 85/45; PULSE 77; TEMP 98.5
== END 2022-06-02 11:27 | disposition home or self-care (01) ==
LOC: FINFUSION 10:00 → FM/S 10:05 → FINFUSION 11:27
PROVIDERS: ATTEND Internal Medicine
DX: M86.679 Other chronic osteomyelitis, unspecified ankle and foot (principal)
CPT/HCPCS: 96365; 96367; J0878

== ENCOUNTER 2022-06-03 10:06 | Day surgery (SDC) | payer OTHER ==
[2022-06-03] MEDS ORDERED: CEFTRIAXONE 2 GM in SODIUM CHLORIDE 100 ML IVPB ONE (10:30)
[2022-06-03] MEDS ORDERED: SODIUM CHLORIDE 100 ML IVPB ONE (10:33)
[2022-06-03] MEDS ORDERED: DAPTOMYCIN 400 MG in SODIUM CHLORIDE 50 ML IVPB ONE (11:00)
[2022-06-03 12:09] VITALS: BP 108/65; PULSE 77; TEMP 98
== END 2022-06-03 12:14 | disposition home or self-care (01) ==
LOC: FINFUSION 10:06 → FM/S 10:07 → FINFUSION 12:14
PROVIDERS: ATTEND Internal Medicine
DX: M86.679 Other chronic osteomyelitis, unspecified ankle and foot
CPT/HCPCS: 83036; 96365; 96367; 99406; G0463-25; J0878

== ENCOUNTER 2022-06-04 09:58 | Day surgery (SDC) | payer OTHER ==
[2022-06-04] MEDS ORDERED: SODIUM CHLORIDE 100 ML IVPB ONE (10:05)
[2022-06-04] MEDS ORDERED: CEFTRIAXONE 2 GM in SODIUM CHLORIDE 100 ML IVPB ONE (11:00)
[2022-06-04] MEDS ORDERED: DAPTOMYCIN 400 MG in SODIUM CHLORIDE 50 ML IVPB ONE (11:00)
[2022-06-04 12:13] VITALS: BP 119/62; PULSE 83; RESP 16; TEMP 97.9
== END 2022-06-04 12:10 | disposition home or self-care (01) ==
LOC: FINFUSION 09:58 → FM/S 10:02 → FINFUSION 12:10
PROVIDERS: ATTEND Internal Medicine
DX: M86.679 Other chronic osteomyelitis, unspecified ankle and foot (principal)
CPT/HCPCS: 96365; 96367; J0878

== ENCOUNTER 2022-06-05 10:20 | Day surgery (SDC) | payer OTHER ==
[2022-06-05] MEDS ORDERED: SODIUM CHLORIDE 100 ML IVPB ONE (10:26)
[2022-06-05] MEDS ORDERED: CEFTRIAXONE 2 GM in SODIUM CHLORIDE 100 ML IVPB ONE (11:00)
[2022-06-05] MEDS ORDERED: DAPTOMYCIN 400 MG in SODIUM CHLORIDE 50 ML IVPB ONE (11:00)
[2022-06-05 12:04] VITALS: BP 103/58; PULSE 78; RESP 18; TEMP 98.2
== END 2022-06-05 12:10 | disposition home or self-care (01) ==
LOC: FINFUSION 10:20 → FM/S 10:21 → FINFUSION 10:43
PROVIDERS: ATTEND Internal Medicine
DX: M86.679 Other chronic osteomyelitis, unspecified ankle and foot (principal)
CPT/HCPCS: 96365; 96367; J0878

== ENCOUNTER 2022-06-06 09:47 | Day surgery (SDC) | payer OTHER ==
[2022-06-06] MEDS ORDERED: SODIUM CHLORIDE 100 ML IVPB ONE (09:53)
[2022-06-06 10:49] VITALS: BP 109/54; PULSE 84; RESP 18; TEMP 98.3
[2022-06-06] MEDS ORDERED: CEFTRIAXONE 2 GM in SODIUM CHLORIDE 100 ML IVPB ONE (11:00)
[2022-06-06] MEDS ORDERED: DAPTOMYCIN 400 MG in SODIUM CHLORIDE 50 ML IVPB ONE (11:00)
== END 2022-06-06 10:53 | disposition home or self-care (01) ==
LOC: FINFUSION 09:47 → FM/S 09:50 → FINFUSION 10:53
PROVIDERS: ATTEND Internal Medicine
DX: M86.679 Other chronic osteomyelitis, unspecified ankle and foot (principal)
CPT/HCPCS: 96365; 96367; J0878

== ENCOUNTER 2022-06-07 09:54 | Day surgery (SDC) | payer OTHER ==
[2022-06-07 10:19] VITALS: RESP 18; TEMP 98
[2022-06-07] MEDS ORDERED: SODIUM CHLORIDE 100 ML IVPB ONE (10:20)
[2022-06-07] MEDS ORDERED: CEFTRIAXONE 2 GM in SODIUM CHLORIDE 100 ML IVPB ONE (11:00)
[2022-06-07 11:08] LABS: HEMATOCRIT 38.9 % (32.4-45.2); HEMOGLOBIN 13.6 G/dL (10.7-15.3); MCH 31.7 pg (25.7-33.7); MEAN CELL VOLUME 90.4 fl (80-96); MEAN PLT VOLUME 8.4 fl (7.5-11.1); PLATELET COUNT 255.6 10^3/uL (134-434)
[2022-06-07 11:16] LABS: ALBUMIN 3.3 g/dl (3.4-5.0); BILIRUBIN,TOTAL 0.5 mg/dl (0.2-1); CALCIUM 8.6 mg/dl (8.5-10); CREATININE 0.7 mg/dl (0.55-1.3); TOT PROT 6.9 g/dl (6.4-8.2)
[2022-06-07 11:26] VITALS: BP 109/61; PULSE 81
[2022-06-07] MEDS ORDERED: DAPTOMYCIN 400 MG in SODIUM CHLORIDE 50 ML IVPB ONE (11:30)
== END 2022-06-07 11:32 | disposition home or self-care (01) ==
LOC: FM/S 09:54 → FINFUSION 09:54
PROVIDERS: ATTEND Internal Medicine
DX: M86.679 Other chronic osteomyelitis, unspecified ankle and foot (principal)
CPT/HCPCS: 36415; 80053; 82550; 85027; 96365; 96367; J0878

== ENCOUNTER 2022-06-10 14:42 | Inpatient (IN) | payer OTHER ==
[2022-06-10] MEDS ORDERED: morphine SULFATE 4 MG/ML VIAL ONE (16:00)
[2022-06-10] MEDS ORDERED: morphine CARPU-JECT 8 MG/1 ML DISP.SYRIN IVPUSH ONE (16:00)
[2022-06-10 16:33] LABS: BASO % 0.6 % (0-2.0); EOS % 3.7 % (0-4.5); HEMOGLOBIN 12.3 GM/dL (10.7-15.3); MCH 30.4 pg (25.7-33.7); MCHC 34.1 g/dl (32.0-36.0); MEAN CELL VOLUME 89.1 fl (80-96); MEAN PLT VOLUME 8.4 fl (7.5-11.1); NEUT % 63.7 % (42.8-82.8); PLATELET COUNT 240 10^3/uL (134-434); RBC 4.04 M/mm3 (3.60-5.2); RDW 14.9 % (11.6-15.6); WHITE BLOOD COUNT 5.8 K/mm3 (4.0-10.0)
[2022-06-10 16:37] LABS: INR 1.07 (0.83-1.09); PROTHROMBIN TIME (PATIENT) 12.3 SEC (9.7-13.0)
[2022-06-10 16:49] LABS: ALBUMIN 3.4 g/dl (3.4-5.0); BLOOD UREA NITROGEN 15.9 mg/dL (7-18); CALCIUM 8.8 mg/dL (8.5-10.1)
[2022-06-10 16:52] LABS: CREATININE 0.8 mg/dL (0.55-1.3)
[2022-06-10 16:54] LABS: BILIRUBIN,TOTAL 0.2 mg/dL (0.2-1); TOT PROT 6.9 g/dl (6.4-8.2)
[2022-06-10] MEDS: CARVEDILOL 6.25 MG TABLET (FP) PO SCH (21:19)
[2022-06-10] MEDS: ATORVASTATIN CA 20 MG TABLET (FP) PO SCH (21:19)
[2022-06-10] MEDS: levETIRAcetam 500 MG TABLET (FP) PO SCH (21:19)
[2022-06-10] MEDS: SACUBITRIL/VALSARTAN 24 MG-26 MG TABLET PO SCH (21:19)
[2022-06-10] MEDS: INSULIN SLIDING SCALE (NOVOLOG) 1 VIAL SQ SCH (21:22)
[2022-06-10 21:56] VITALS: BMI 25.2
[2022-06-11] MEDS: INSULIN SLIDING SCALE (NOVOLOG) 1 VIAL SQ SCH ×4 (06:08→21:10)
[2022-06-11] MEDS: TAMSULOSIN HCL 0.4 MG CAP PO SCH (08:32)
[2022-06-11] MEDS: CARVEDILOL 6.25 MG TABLET (FP) PO SCH ×2 (10:34→21:10)
[2022-06-11] MEDS: SACUBITRIL/VALSARTAN 24 MG-26 MG TABLET PO SCH ×2 (10:34→21:10)
[2022-06-11] MEDS: ASPIRIN COATED 81 MG TABLET.EC PO SCH (10:35)
[2022-06-11] MEDS: levETIRAcetam 500 MG TABLET (FP) PO SCH ×2 (10:35→21:10)
[2022-06-11] MEDS ORDERED: oxyCODONE HCL 5 MG TABLET PO PRN (11:18)
[2022-06-11] MEDS: TIOTROPIUM BROMIDE 2.5 MCG (SPIRIVA) RESPIMAT INHALER IH SCH (11:29)
[2022-06-11 11:49] LABS: BASO % 0.5 % (0-2.0); EOS % 5.6 % (0-4.5); HEMATOCRIT 36.4 % (32.4-45.2); HEMOGLOBIN 12.2 GM/dL (10.7-15.3); LYMPH % 18.9 % (8-40); MCHC 33.5 g/dl (32.0-36.0); MEAN CELL VOLUME 89.4 fl (80-96); MEAN PLT VOLUME 7.8 fl (7.5-11.1); MONO % 10.8 % (3.8-10.2); NEUT % 64.2 % (42.8-82.8); PLATELET COUNT 255 10^3/uL (134-434); RBC 4.07 M/mm3 (3.60-5.2); WHITE BLOOD COUNT 4.7 K/mm3 (4.0-10.0)
[2022-06-11] MEDS: ACETAMINOPHEN 325 MG TABLET (FP) PO PRN (12:05)
[2022-06-11 12:14] LABS: CALCIUM 8.9 mg/dL (8.5-10.1)
[2022-06-11 12:15] LABS: ALBUMIN 3.5 g/dl (3.4-5.0); BLOOD UREA NITROGEN 15.5 mg/dL (7-18); MAGNESIUM 2.4 mg/dL (1.8-2.4)
[2022-06-11 12:18] LABS: CREATININE 0.8 mg/dL (0.55-1.3); PHOSPHOROUS 3.1 mg/dL (2.5-4.9)
[2022-06-11 12:19] LABS: TOT PROT 7.3 g/dl (6.4-8.2)
[2022-06-11 12:20] LABS: BILIRUBIN,TOTAL 0.5 mg/dL (0.2-1)
[2022-06-11] MEDS: VANCOMYCIN/WATER FOR INJ (PEG) 1,000 MG/200 ML BAG IVPB SCH (15:19)
[2022-06-11] MEDS ORDERED: CEFEPIME HCL 1 GM VIAL (RESTRICTED TO ID) ONE (17:23)
[2022-06-11] MEDS: CEFEPIME 1 GM in DEXTROSE 5%-WATER 100 ML IVPB SCH (17:25)
[2022-06-11] MEDS: ATORVASTATIN CA 20 MG TABLET (FP) PO SCH (21:10)
[2022-06-11] MEDS: metroNIDAZOLE 250 MG TABLET PO SCH (21:10)
[2022-06-12] MEDS ORDERED: CEFEPIME HCL 1 GM VIAL (RESTRICTED TO ID) ONE ×3 (01:12→17:29)
[2022-06-12] MEDS: CEFEPIME 1 GM in DEXTROSE 5%-WATER 100 ML IVPB SCH ×3 (01:23→18:23)
[2022-06-12] MEDS: INSULIN SLIDING SCALE (NOVOLOG) 1 VIAL SQ SCH ×4 (06:23→21:17)
[2022-06-12] MEDS: TAMSULOSIN HCL 0.4 MG CAP PO SCH (08:52)
[2022-06-12] MEDS ORDERED: DEXTROSE 5%-WATER 100 ML IVPB ONE ×2 (10:00→17:30)
[2022-06-12] MEDS: SACUBITRIL/VALSARTAN 24 MG-26 MG TABLET PO SCH ×2 (10:02→21:11)
[2022-06-12] MEDS: metroNIDAZOLE 250 MG TABLET PO SCH ×2 (10:02→21:11)
[2022-06-12] MEDS: ENOXAPARIN NA (PORCINE) 40 MG/0.4 ML DISP.SYRIN SQ SCH (10:02)
[2022-06-12] MEDS: levETIRAcetam 500 MG TABLET (FP) PO SCH ×2 (10:02→21:11)
[2022-06-12] MEDS: ASPIRIN COATED 81 MG TABLET.EC PO SCH (10:03)
[2022-06-12] MEDS: CARVEDILOL 6.25 MG TABLET (FP) PO SCH ×2 (10:03→21:11)
[2022-06-12] MEDS: TIOTROPIUM BROMIDE 2.5 MCG (SPIRIVA) RESPIMAT INHALER IH SCH (10:29)
[2022-06-12] MEDS: ACETAMINOPHEN 325 MG TABLET (FP) PO PRN ×2 (11:25→17:33)
[2022-06-12] MEDS: VANCOMYCIN/WATER FOR INJ (PEG) 1,000 MG/200 ML BAG IVPB SCH (15:35)
[2022-06-12] MEDS: ATORVASTATIN CA 20 MG TABLET (FP) PO SCH (21:11)
[2022-06-13] MEDS ORDERED: CEFEPIME HCL 1 GM VIAL (RESTRICTED TO ID) ONE ×3 (01:04→17:01)
[2022-06-13] MEDS ORDERED: DEXTROSE 5%-WATER 100 ML IVPB ONE ×3 (01:04→17:01)
[2022-06-13] MEDS: CEFEPIME 1 GM in DEXTROSE 5%-WATER 100 ML IVPB SCH ×3 (01:09→17:03)
[2022-06-13] MEDS: INSULIN SLIDING SCALE (NOVOLOG) 1 VIAL SQ SCH ×4 (05:59→21:53)
[2022-06-13] MEDS: ENOXAPARIN NA (PORCINE) 40 MG/0.4 ML DISP.SYRIN SQ SCH (09:56)
[2022-06-13] MEDS: SACUBITRIL/VALSARTAN 24 MG-26 MG TABLET PO SCH ×2 (09:57→21:55)
[2022-06-13] MEDS: TAMSULOSIN HCL 0.4 MG CAP PO SCH (09:57)
[2022-06-13] MEDS: ASPIRIN COATED 81 MG TABLET.EC PO SCH (09:57)
[2022-06-13] MEDS: metroNIDAZOLE 250 MG TABLET PO SCH ×2 (09:57→21:55)
[2022-06-13] MEDS: TIOTROPIUM BROMIDE 2.5 MCG (SPIRIVA) RESPIMAT INHALER IH SCH (09:58)
[2022-06-13] MEDS: levETIRAcetam 500 MG TABLET (FP) PO SCH ×2 (09:58→21:55)
[2022-06-13] MEDS: CARVEDILOL 6.25 MG TABLET (FP) PO SCH ×2 (09:58→21:55)
[2022-06-13] MEDS: VANCOMYCIN/WATER FOR INJ (PEG) 1,000 MG/200 ML BAG IVPB SCH (15:25)
[2022-06-13] MEDS: ATORVASTATIN CA 20 MG TABLET (FP) PO SCH (21:55)
[2022-06-14] MEDS ORDERED: CEFEPIME HCL 1 GM VIAL (RESTRICTED TO ID) ONE ×3 (02:12→16:36)
[2022-06-14] MEDS ORDERED: DEXTROSE 5%-WATER 100 ML IVPB ONE ×3 (02:12→16:36)
[2022-06-14] MEDS: CEFEPIME 1 GM in DEXTROSE 5%-WATER 100 ML IVPB SCH ×3 (02:19→17:13)
[2022-06-14] MEDS: ACETAMINOPHEN 325 MG TABLET (FP) PO PRN (02:28)
[2022-06-14] MEDS: INSULIN SLIDING SCALE (NOVOLOG) 1 VIAL SQ SCH ×4 (06:16→23:14)
[2022-06-14] MEDS: ENOXAPARIN NA (PORCINE) 40 MG/0.4 ML DISP.SYRIN SQ SCH (09:14)
[2022-06-14] MEDS: TAMSULOSIN HCL 0.4 MG CAP PO SCH (09:15)
[2022-06-14] MEDS: CARVEDILOL 6.25 MG TABLET (FP) PO SCH ×2 (09:15→23:16)
[2022-06-14] MEDS: SACUBITRIL/VALSARTAN 24 MG-26 MG TABLET PO SCH ×2 (09:15→23:15)
[2022-06-14] MEDS: metroNIDAZOLE 250 MG TABLET PO SCH ×2 (09:15→23:15)
[2022-06-14] MEDS: ASPIRIN COATED 81 MG TABLET.EC PO SCH (09:15)
[2022-06-14] MEDS: levETIRAcetam 500 MG TABLET (FP) PO SCH ×2 (09:15→23:15)
[2022-06-14] MEDS: TIOTROPIUM BROMIDE 2.5 MCG (SPIRIVA) RESPIMAT INHALER IH SCH (09:33)
[2022-06-14] MEDS ORDERED: INSULIN (NOVOLOG) ASPART 100 UNITS/ML 10ML VIAL ONE (10:43)
[2022-06-14] MEDS: VANCOMYCIN/WATER FOR INJ (PEG) 1,000 MG/200 ML BAG IVPB SCH (14:07)
[2022-06-14] MEDS ORDERED: oxyCODONE HCL 5 MG TABLET PO PRN (15:06)
[2022-06-14] MEDS: ATORVASTATIN CA 20 MG TABLET (FP) PO SCH (23:16)
[2022-06-15] MEDS ORDERED: DEXTROSE 5%-WATER 100 ML IVPB ONE ×2 (02:46→09:40)
[2022-06-15] MEDS ORDERED: CEFEPIME HCL 1 GM VIAL (RESTRICTED TO ID) ONE ×2 (02:46→09:40)
[2022-06-15] MEDS: CEFEPIME 1 GM in DEXTROSE 5%-WATER 100 ML IVPB SCH ×3 (02:49→17:35)
[2022-06-15] MEDS: INSULIN SLIDING SCALE (NOVOLOG) 1 VIAL SQ SCH ×4 (06:31→21:18)
[2022-06-15] MEDS: ENOXAPARIN NA (PORCINE) 40 MG/0.4 ML DISP.SYRIN SQ SCH (09:44)
[2022-06-15] MEDS: metroNIDAZOLE 250 MG TABLET PO SCH ×2 (09:45→21:06)
[2022-06-15] MEDS: TAMSULOSIN HCL 0.4 MG CAP PO SCH (09:45)
[2022-06-15] MEDS: ASPIRIN COATED 81 MG TABLET.EC PO SCH (09:46)
[2022-06-15] MEDS: levETIRAcetam 500 MG TABLET (FP) PO SCH ×2 (09:46→21:07)
[2022-06-15] MEDS: CARVEDILOL 6.25 MG TABLET (FP) PO SCH ×2 (09:46→21:07)
[2022-06-15] MEDS: SACUBITRIL/VALSARTAN 24 MG-26 MG TABLET PO SCH ×2 (09:47→21:08)
[2022-06-15] MEDS: TIOTROPIUM BROMIDE 2.5 MCG (SPIRIVA) RESPIMAT INHALER IH SCH (09:47)
[2022-06-15 14:01] LABS: BASO % 0.3 % (0-2.0); EOS % 1.3 % (0-4.5); HEMATOCRIT 34.8 % (32.4-45.2); HEMOGLOBIN 11.7 GM/dL (10.7-15.3); LYMPH % 17.8 % (8-40); MCH 30.2 pg (25.7-33.7); MCHC 33.6 g/dl (32.0-36.0); MEAN PLT VOLUME 8.5 fl (7.5-11.1); MONO % 14.3 % (3.8-10.2); NEUT % 66.3 % (42.8-82.8); PLATELET COUNT 215 10^3/uL (134-434); RBC 3.86 M/mm3 (3.60-5.2); RDW 14.9 % (11.6-15.6); WHITE BLOOD COUNT 4.6 K/mm3 (4.0-10.0)
[2022-06-15 14:06] LABS: INR 1.14 (0.83-1.09); PROTHROMBIN TIME (PATIENT) 13.1 SEC (9.7-13.0)
[2022-06-15] MEDS: VANCOMYCIN/WATER FOR INJ (PEG) 1,000 MG/200 ML BAG IVPB SCH (17:11)
[2022-06-15] MEDS: ATORVASTATIN CA 20 MG TABLET (FP) PO SCH (21:07)
[2022-06-16] MEDS: CEFEPIME 1 GM in DEXTROSE 5%-WATER 100 ML IVPB SCH ×3 (01:28→17:35)
[2022-06-16] MEDS ORDERED: VANCOMYCIN/WATER FOR INJ (PEG) 1,000 MG/200 ML BAG IVPB SCH (06:00)
[2022-06-16] MEDS: INSULIN SLIDING SCALE (NOVOLOG) 1 VIAL SQ SCH ×4 (06:15→21:40)
[2022-06-16] MEDS: TAMSULOSIN HCL 0.4 MG CAP PO SCH (09:24)
[2022-06-16] MEDS: CARVEDILOL 6.25 MG TABLET (FP) PO SCH ×2 (09:25→21:35)
[2022-06-16] MEDS: levETIRAcetam 500 MG TABLET (FP) PO SCH ×2 (09:25→21:34)
[2022-06-16] MEDS: SACUBITRIL/VALSARTAN 24 MG-26 MG TABLET PO SCH ×2 (09:25→21:34)
[2022-06-16] MEDS: metroNIDAZOLE 250 MG TABLET PO SCH ×2 (09:25→21:35)
[2022-06-16] MEDS: TIOTROPIUM BROMIDE 2.5 MCG (SPIRIVA) RESPIMAT INHALER IH SCH (09:51)
[2022-06-16] MEDS ORDERED: LIDOCAINE HCL 1%, 10 MG/ML (20ML VIAL) ONE (10:38)
[2022-06-16] MEDS ORDERED: BUPIVACAINE HCL/PF 0.5% (5MG/ML) 10 ML VIAL ONE (10:38)
[2022-06-16] MEDS ORDERED: DEXAMETHASONE SOD PHOSPHATE 4 MG/1 ML VIAL ONE (10:38)
[2022-06-16] MEDS ORDERED: GENTAMICIN SO4 80 MG/2 ML VIAL ONE (10:45)
[2022-06-16] MEDS ORDERED: VANCOMYCIN 1,000 MG VIAL (RESTRICTED TO ID ONLY) ONE (11:05)
[2022-06-16] MEDS ORDERED: BUPIVACAINE HCL/PF 0.5% (5MG/ML) 10 ML VIAL PNB ONE (11:21)
[2022-06-16] MEDS ORDERED: LIDOCAINE 1% P/F 10 MG/ML VIAL PNB ONE (11:21)
[2022-06-16] MEDS ORDERED: SODIUM CHLORIDE 0.9% P/F 10 ML VIAL IJ ONE ×2 (11:26)
[2022-06-16] MEDS ORDERED: PROPOFOL 20 ML ONE (11:44)
[2022-06-16] MEDS ORDERED: ACETAMINOPHEN 325 MG TABLET (FP) PO PRN (12:20)
[2022-06-16 13:38] LABS: BASO % 0.2 % (0-2.0); EOS % 0.1 % (0-4.5); HEMATOCRIT 32.4 % (32.4-45.2); HEMOGLOBIN 10.9 GM/dL (10.7-15.3); LYMPH % 23.2 % (8-40); MCH 30.3 pg (25.7-33.7); MCHC 33.6 g/dl (32.0-36.0); MEAN CELL VOLUME 90.1 fl (80-96); MEAN PLT VOLUME 8.1 fl (7.5-11.1); MONO % 19.3 % (3.8-10.2); NEUT % 57.2 % (42.8-82.8); PLATELET COUNT 196 10^3/uL (134-434); RDW 15.1 % (11.6-15.6); WHITE BLOOD COUNT 3.3 K/mm3 (4.0-10.0)
[2022-06-16] MEDS: VANCOMYCIN/WATER FOR INJ (PEG) 1,000 MG/200 ML BAG IVPB SCH (18:22)
[2022-06-16] MEDS: ATORVASTATIN CA 20 MG TABLET (FP) PO SCH (21:35)
[2022-06-17] MEDS: CEFEPIME 1 GM in DEXTROSE 5%-WATER 100 ML IVPB SCH ×3 (02:31→17:22)
[2022-06-17] MEDS: VANCOMYCIN/WATER FOR INJ (PEG) 1,000 MG/200 ML BAG IVPB SCH ×2 (06:07→17:22)
[2022-06-17] MEDS: INSULIN SLIDING SCALE (NOVOLOG) 1 VIAL SQ SCH ×4 (06:15→22:03)
[2022-06-17] MEDS: TAMSULOSIN HCL 0.4 MG CAP PO SCH (08:37)
[2022-06-17] MEDS: CARVEDILOL 6.25 MG TABLET (FP) PO SCH ×2 (11:00→21:56)
[2022-06-17] MEDS: levETIRAcetam 500 MG TABLET (FP) PO SCH ×2 (11:00→21:56)
[2022-06-17] MEDS: SACUBITRIL/VALSARTAN 24 MG-26 MG TABLET PO SCH ×2 (11:01→21:56)
[2022-06-17] MEDS: metroNIDAZOLE 250 MG TABLET PO SCH ×2 (11:01→21:56)
[2022-06-17] MEDS: TIOTROPIUM BROMIDE 2.5 MCG (SPIRIVA) RESPIMAT INHALER IH SCH (11:24)
[2022-06-17] MEDS: ATORVASTATIN CA 20 MG TABLET (FP) PO SCH (21:56)
[2022-06-18] MEDS: CEFEPIME 1 GM in DEXTROSE 5%-WATER 100 ML IVPB SCH ×3 (01:54→17:13)
[2022-06-18] MEDS: VANCOMYCIN/WATER FOR INJ (PEG) 1,000 MG/200 ML BAG IVPB SCH ×3 (06:44→21:08)
[2022-06-18] MEDS: INSULIN SLIDING SCALE (NOVOLOG) 1 VIAL SQ SCH ×4 (07:47→21:10)
[2022-06-18] MEDS: SACUBITRIL/VALSARTAN 24 MG-26 MG TABLET PO SCH ×2 (09:55→21:09)
[2022-06-18] MEDS: levETIRAcetam 500 MG TABLET (FP) PO SCH ×2 (09:55→21:09)
[2022-06-18] MEDS: CARVEDILOL 6.25 MG TABLET (FP) PO SCH ×2 (09:56→21:09)
[2022-06-18] MEDS: TAMSULOSIN HCL 0.4 MG CAP PO SCH (09:56)
[2022-06-18] MEDS: metroNIDAZOLE 250 MG TABLET PO SCH ×2 (09:56→21:09)
[2022-06-18] MEDS: TIOTROPIUM BROMIDE 2.5 MCG (SPIRIVA) RESPIMAT INHALER IH SCH (09:56)
[2022-06-18 12:11] LABS: BASO % 0.3 % (0-2.0); HEMATOCRIT 36.4 % (32.4-45.2); HEMOGLOBIN 12.2 GM/dL (10.7-15.3); LYMPH % 21.9 % (8-40); MCH 30.4 pg (25.7-33.7); MCHC 33.5 g/dl (32.0-36.0); MEAN CELL VOLUME 90.6 fl (80-96); MEAN PLT VOLUME 8.3 fl (7.5-11.1); NEUT % 61.8 % (42.8-82.8); PLATELET COUNT 238 10^3/uL (134-434); RBC 4.02 M/mm3 (3.60-5.2); WHITE BLOOD COUNT 4.8 K/mm3 (4.0-10.0)
[2022-06-18 12:48] LABS: CALCIUM 8.9 mg/dL (8.5-10.1)
[2022-06-18 12:49] LABS: ALBUMIN 3.2 g/dl (3.4-5.0); BLOOD UREA NITROGEN 7.6 mg/dL (7-18)
[2022-06-18 12:52] LABS: CREATININE 0.7 mg/dL (0.55-1.3)
[2022-06-18 12:53] LABS: BILIRUBIN,TOTAL 0.7 mg/dL (0.2-1)
[2022-06-18 21:07] VITALS: RESP 18
[2022-06-18] MEDS: ATORVASTATIN CA 20 MG TABLET (FP) PO SCH (21:09)
[2022-06-19] MEDS: CEFEPIME 1 GM in DEXTROSE 5%-WATER 100 ML IVPB SCH ×3 (02:47→17:05)
[2022-06-19] MEDS: VANCOMYCIN/WATER FOR INJ (PEG) 1,000 MG/200 ML BAG IVPB SCH ×2 (06:06→17:17)
[2022-06-19] MEDS: INSULIN SLIDING SCALE (NOVOLOG) 1 VIAL SQ SCH ×4 (06:07→22:13)
[2022-06-19] MEDS: TAMSULOSIN HCL 0.4 MG CAP PO SCH (08:19)
[2022-06-19] MEDS: metroNIDAZOLE 250 MG TABLET PO SCH ×2 (10:18→22:13)
[2022-06-19] MEDS: levETIRAcetam 500 MG TABLET (FP) PO SCH ×2 (10:19→22:13)
[2022-06-19] MEDS: CARVEDILOL 6.25 MG TABLET (FP) PO SCH ×2 (10:19→22:13)
[2022-06-19] MEDS: SACUBITRIL/VALSARTAN 24 MG-26 MG TABLET PO SCH ×2 (10:19→22:05)
[2022-06-19] MEDS: TIOTROPIUM BROMIDE 2.5 MCG (SPIRIVA) RESPIMAT INHALER IH SCH (10:27)
[2022-06-19] MEDS: ATORVASTATIN CA 20 MG TABLET (FP) PO SCH (22:13)
[2022-06-20] MEDS: CEFEPIME 1 GM in DEXTROSE 5%-WATER 100 ML IVPB SCH ×3 (01:24→17:01)
[2022-06-20] MEDS: VANCOMYCIN/WATER FOR INJ (PEG) 1,000 MG/200 ML BAG IVPB SCH ×2 (06:40→18:11)
[2022-06-20] MEDS: INSULIN SLIDING SCALE (NOVOLOG) 1 VIAL SQ SCH ×4 (06:41→21:34)
[2022-06-20] MEDS: TAMSULOSIN HCL 0.4 MG CAP PO SCH (09:50)
[2022-06-20] MEDS: metroNIDAZOLE 250 MG TABLET PO SCH ×2 (09:52→21:34)
[2022-06-20] MEDS: CARVEDILOL 6.25 MG TABLET (FP) PO SCH ×2 (09:53→21:34)
[2022-06-20] MEDS: levETIRAcetam 500 MG TABLET (FP) PO SCH ×2 (09:53→21:33)
[2022-06-20] MEDS: SACUBITRIL/VALSARTAN 24 MG-26 MG TABLET PO SCH ×2 (09:53→21:33)
[2022-06-20] MEDS: TIOTROPIUM BROMIDE 2.5 MCG (SPIRIVA) RESPIMAT INHALER IH SCH (09:53)
[2022-06-20] MEDS: ATORVASTATIN CA 20 MG TABLET (FP) PO SCH (21:34)
[2022-06-21] MEDS: CEFEPIME 1 GM in DEXTROSE 5%-WATER 100 ML IVPB SCH ×2 (02:00→10:00)
[2022-06-21] MEDS: VANCOMYCIN/WATER FOR INJ (PEG) 1,000 MG/200 ML BAG IVPB SCH (06:13)
[2022-06-21] MEDS: INSULIN SLIDING SCALE (NOVOLOG) 1 VIAL SQ SCH ×2 (06:13→11:40)
[2022-06-21] MEDS: TAMSULOSIN HCL 0.4 MG CAP PO SCH (09:58)
[2022-06-21] MEDS: CARVEDILOL 6.25 MG TABLET (FP) PO SCH (09:59)
[2022-06-21] MEDS: levETIRAcetam 500 MG TABLET (FP) PO SCH (09:59)
[2022-06-21] MEDS: SACUBITRIL/VALSARTAN 24 MG-26 MG TABLET PO SCH (09:59)
[2022-06-21] MEDS: metroNIDAZOLE 250 MG TABLET PO SCH (10:00)
[2022-06-21 10:05] VITALS: BP 118/65; PULSE 91; TEMP 98.7
[2022-06-21] MEDS: TIOTROPIUM BROMIDE 2.5 MCG (SPIRIVA) RESPIMAT INHALER IH SCH (10:52)
== END 2022-06-21 14:59 | disposition home or self-care (01) | DRG 616 ==
LOC: JER 14:42 → JERBED 17:55 → J6S 18:53
PROVIDERS: ADMIT Internal Medicine; ATTEND Internal Medicine
PROC: 0Y6M0Z9 Detachment at Right Foot, Partial 1st Ray, Open Approach (ICD-10-PCS; principal; 2022-06-16 10:00)
PROC: 0Y6P0Z0 Detachment at Right 1st Toe, Complete, Open Approach (ICD-10-PCS; 2022-06-16 10:00)
DX: E11.69 Type 2 diabetes mellitus with other specified complication (principal); U07.1 COVID-19; M86.8X7 Other osteomyelitis, ankle and foot; E11.52 Type 2 diabetes mellitus with diabetic peripheral angiopathy with gangrene; I96 Gangrene, not elsewhere classified; J44.9 Chronic obstructive pulmonary disease, unspecified; I11.0 Hypertensive heart disease with heart failure; E03.9 Hypothyroidism, unspecified; G40.909 Epilepsy, unspecified, not intractable, without status epilepticus; I25.10 Atherosclerotic heart disease of native coronary artery without angina pectoris; F17.210 Nicotine dependence, cigarettes, uncomplicated; Z88.0 Allergy status to penicillin; I50.9 Heart failure, unspecified
CPT/HCPCS: 36415; 71046-TC-FY; 73630-TC-RT-FY; 75635-TC; 80053; 82550; 82962; 83735; 84100; 85025; 85027; 85610; 85651; 85730; 86140; 86850; 86900; 86901; 87070; 87205; 88302-TC; 88305-TC; 88311-TC; 93005; 93010; 94760; 96365; 96367; 99285-25; 99406; C9803-CS; G0463-25; G0480; J0878; Q9967; U0003; U0005

== ENCOUNTER 2023-12-08 07:14 | Inpatient (IN) | payer OTHER ==
[2023-12-08 07:27] VITALS: BMI 24.7
[2023-12-08] MEDS ORDERED: VANCOMYCIN HCL 1,500 MG in DEXTROSE 5%-WATER - 500 ML IVPB ONE (09:05)
[2023-12-08] MEDS ORDERED: CEFTRIAXONE 2 GM/100 ML BAG IVPB ONE (09:38)
[2023-12-08] MEDS: VANCOMYCIN PREMIX 1.5 GM 1,500 MG/300 ML BAG IVPB ONE (09:50)
[2023-12-08] MEDS: CEFTRIAXONE 2,000 MG in DEXTROSE 5%-WATER - 50 ML IVPB ONE (09:50)
[2023-12-08] MEDS: PIPERACILLIN/TAZOB 4.5 GM 4.5 GM in DEXTROSE 5%-WATER 100 ML IVPB ONE (09:50)
[2023-12-08 10:26] LABS: BASO % 0.2 % (0-2.0); EOS % 2.5 % (0-4.5); HEMATOCRIT 42.1 % (32.4-45.2); HEMOGLOBIN 13.9 GM/dL (10.7-15.3); LYMPH % 15.2 % (8-40); MCH 29.8 pg (25.7-33.7); MCHC 33.1 g/dl (32.0-36.0); MEAN PLT VOLUME 8.2 fl (7.5-11.1); MONO % 8.8 % (3.8-10.2); NEUT % 73.3 % (42.8-82.8); PLATELET COUNT 265 10^3/uL (134-434); RBC 4.68 M/mm3 (3.60-5.2); RDW 13.5 % (11.6-15.6); WHITE BLOOD COUNT 5.8 K/mm3 (4.0-10.0)
[2023-12-08] MEDS: DAPTOMYCIN 400 MG in SODIUM CHLORIDE 50 ML IVPB ONE (10:28)
[2023-12-08] MEDS: DAPTOMYCIN 250 MG in SODIUM CHLORIDE 50 ML IVPB ONE (10:28)
[2023-12-08 10:32] LABS: INR 1.07 (0.83-1.09); PROTHROMBIN TIME (PATIENT) 12.4 SEC (9.7-13.0)
[2023-12-08 10:34] LABS: ACTIVATED PTT 32.4 SECONDS (25.2-36.5)
[2023-12-08 11:02] LABS: CHLORIDE 99 mmol/L (98-107); POTASSIUM 4.3 mmol/L (3.5-5.1); SODIUM 136 mmol/L (136-145)
[2023-12-08 11:03] LABS: CALCIUM 8.9 mg/dL (8.5-10.1)
[2023-12-08 11:04] LABS: ANION GAP 7 mmol/L (4-13); BLOOD UREA NITROGEN 4.5 mg/dL (7-18); CO2 30 mmol/L (21-32); GLUCOSE,RANDOM 105 mg/dL (74-106)
[2023-12-08 11:06] LABS: ERYTHROCYTE SEDIMENTATION RATE 15 mm/hr (0-30)
[2023-12-08 11:07] LABS: CREATININE 0.7 mg/dL (0.55-1.3); SGOT/AST 12 U/L (15-37); SGPT/ALT 9 U/L (13-61)
[2023-12-08 11:08] LABS: BILIRUBIN,TOTAL 0.5 mg/dL (0.2-1); TOT PROT 6.9 g/dl (6.4-8.2)
[2023-12-08 11:10] LABS: ALK PHOS 95 U/L (45-117)
[2023-12-08] MEDS: levETIRAcetam 500 MG TABLET (FP) PO SCH (22:31)
[2023-12-08] MEDS: CARVEDILOL 6.25 MG TABLET (FP) PO SCH (22:31)
[2023-12-09 12:37] LABS: BASO % 0.6 % (0-2.0); HEMATOCRIT 39.4 % (32.4-45.2); HEMOGLOBIN 13.5 GM/dL (10.7-15.3); LYMPH % 20.3 % (8-40); MCH 30.5 pg (25.7-33.7); MCHC 34.2 g/dl (32.0-36.0); MEAN CELL VOLUME 89.2 fl (80-96); MEAN PLT VOLUME 8.3 fl (7.5-11.1); MONO % 12.3 % (3.8-10.2); NEUT % 63.8 % (42.8-82.8); PLATELET COUNT 257 10^3/uL (134-434); RBC 4.41 M/mm3 (3.60-5.2); WHITE BLOOD COUNT 4.4 K/mm3 (4.0-10.0)
[2023-12-09 12:58] LABS: POTASSIUM 4.2 mmol/L (3.5-5.1)
[2023-12-09 13:01] LABS: ALBUMIN 3.2 g/dl (3.4-5.0); MAGNESIUM 2.3 mg/dL (1.8-2.4)
[2023-12-09 13:02] LABS: BLOOD UREA NITROGEN 10.5 mg/dL (7-18)
[2023-12-09 13:04] LABS: CREATININE 0.8 mg/dL (0.55-1.3)
[2023-12-09 13:05] LABS: PHOSPHOROUS 3.2 mg/dL (2.5-4.9)
[2023-12-09 13:06] LABS: BILIRUBIN,TOTAL 0.3 mg/dL (0.2-1)
[2023-12-09] MEDS: ATORVASTATIN CA 20 MG TABLET (FP) PO SCH (21:23)
[2023-12-10] MEDS ORDERED: glipiZIDE-XL 2.5 MG TAB.ER.24 PO SCH (07:00)
[2023-12-10] MEDS: CLOPIDOGREL BISULFATE 75 MG TABLET (FP) PO SCH (09:08)
[2023-12-10] MEDS: TAMSULOSIN HCL 0.4 MG CAP PO SCH (09:08)
[2023-12-10] MEDS: FUROSEMIDE 40 MG TABLET (FP) PO SCH (09:08)
[2023-12-10] MEDS: EMPAGLIFLOZIN (JARDIANCE) 10 MG TABLET PO SCH (09:08)
[2023-12-10] MEDS: TIOTROPIUM BROMIDE 2.5 MCG (SPIRIVA) RESPIMAT INHALER IH SCH (09:09)
[2023-12-10 10:55] LABS: POTASSIUM 4.8 mmol/L (3.5-5.1)
[2023-12-10 10:56] LABS: BLOOD UREA NITROGEN 12.5 mg/dL (7-18); CALCIUM 8.9 mg/dL (8.5-10.1)
[2023-12-10 10:57] LABS: ALBUMIN 3.1 g/dl (3.4-5.0)
[2023-12-10 11:00] LABS: CREATININE 0.8 mg/dL (0.55-1.3)
[2023-12-10 11:01] LABS: BILIRUBIN,TOTAL 0.3 mg/dL (0.2-1); TOT PROT 6.7 g/dl (6.4-8.2)
[2023-12-10] MEDS: CARVEDILOL 6.25 MG TABLET (FP) PO SCH (22:33)
[2023-12-10] MEDS: SACUBITRIL/VALSARTAN 24 MG-26 MG TABLET PO SCH (22:33)
[2023-12-11] MEDS: DIVALPROEX NA *ER* EXTEND REL 250 MG TABLET.SA PO SCH (09:54)
[2023-12-12] MEDS ORDERED: BUPIVACAINE HCL/PF 0.5% (5MG/ML) 10 ML VIAL ONE (07:30)
[2023-12-12] MEDS ORDERED: LIDOCAINE HCL 1%, 10 MG/ML (20ML VIAL) ONE (07:30)
[2023-12-12] MEDS: LIDOCAINE HCL 1%, 10 MG/ML (20ML VIAL) NR ONE (09:31)
[2023-12-12] MEDS: BUPIVACAINE HCL/PF 0.5% (5MG/ML) 10 ML VIAL IJ ONE (09:31)
[2023-12-12] MEDS: levETIRAcetam 500 MG TABLET (FP) PO SCH (12:53)
[2023-12-12] MEDS: SACUBITRIL/VALSARTAN 24 MG-26 MG TABLET PO SCH (12:53)
[2023-12-12] MEDS: EMPAGLIFLOZIN (JARDIANCE) 10 MG TABLET PO SCH (12:53)
[2023-12-12] MEDS: CLOPIDOGREL BISULFATE 75 MG TABLET (FP) PO SCH (12:53)
[2023-12-12] MEDS: CARVEDILOL 6.25 MG TABLET (FP) PO SCH (12:54)
[2023-12-12] MEDS: FUROSEMIDE 40 MG TABLET (FP) PO SCH (12:54)
[2023-12-12] MEDS: VANCOMYCIN/WATER FOR INJ (PEG) 1,000 MG/200 ML BAG IVPB SCH (16:29)
[2023-12-12] MEDS: CEFEPIME 1 GM in DEXTROSE 5%-WATER 100 ML IVPB SCH (18:47)
[2023-12-12] MEDS: ATORVASTATIN CA 20 MG TABLET (FP) PO SCH (22:05)
[2023-12-13] MEDS: TAMSULOSIN HCL 0.4 MG CAP PO SCH (08:53)
[2023-12-13] MEDS: DIVALPROEX NA *ER* EXTEND REL 250 MG TABLET.SA PO SCH (10:37)
[2023-12-13] MEDS: FAMOTIDINE 20 MG TABLET PO SCH (10:43)
[2023-12-13] MEDS: TIOTROPIUM BROMIDE 2.5 MCG (SPIRIVA) RESPIMAT INHALER IH SCH (10:49)
[2023-12-13] MEDS: metFORMIN HCL 500 MG TABLET (FP) PO SCH (17:47)
[2023-12-14] MEDS: ATORVASTATIN CA 20 MG TABLET (FP) PO SCH (09:25)
[2023-12-14 11:05] LABS: BASO % 0.5 % (0-2.0); EOS % 2.6 % (0-4.5); HEMATOCRIT 40.2 % (32.4-45.2); HEMOGLOBIN 13.4 GM/dL (10.7-15.3); LYMPH % 14.1 % (8-40); MCH 30.5 pg (25.7-33.7); MCHC 33.3 g/dl (32.0-36.0); MEAN CELL VOLUME 91.7 fl (80-96); MEAN PLT VOLUME 8.7 fl (7.5-11.1); MONO % 13.4 % (3.8-10.2); NEUT % 69.4 % (42.8-82.8); PLATELET COUNT 222 10^3/uL (134-434); RBC 4.39 M/mm3 (3.60-5.2); WHITE BLOOD COUNT 4.4 K/mm3 (4.0-10.0)
[2023-12-14 11:21] LABS: POTASSIUM 4.5 mmol/L (3.5-5.1)
[2023-12-14 11:56] LABS: BLOOD UREA NITROGEN 13.8 mg/dL (7-18); CREATININE 0.8 mg/dL (0.55-1.3); TOT PROT 6.6 g/dl (6.4-8.2)
[2023-12-14 11:57] LABS: BILIRUBIN,TOTAL 0.4 mg/dL (0.2-1)
[2023-12-15 05:17] VITALS: RESP 18
[2023-12-16 09:52] VITALS: BP 131/60; PULSE 89; TEMP 97.9
== END 2023-12-16 11:21 | disposition home or self-care (01) | DRG 988 ==
LOC: JER 07:14 → JERBED 10:47 → J5S 20:07
PROVIDERS: ADMIT Internal Medicine; ATTEND Internal Medicine
PROC: 0QBQ0ZX Excision of Right Toe Phalanx, Open Approach, Diagnostic (ICD-10-PCS; principal; 2023-12-12 09:30)
DX: E11.69 Type 2 diabetes mellitus with other specified complication (principal); M86.8X7 Other osteomyelitis, ankle and foot; I25.10 Atherosclerotic heart disease of native coronary artery without angina pectoris; J44.9 Chronic obstructive pulmonary disease, unspecified; E11.51 Type 2 diabetes mellitus with diabetic peripheral angiopathy without gangrene; I11.0 Hypertensive heart disease with heart failure; I50.9 Heart failure, unspecified; Z86.73 Personal history of transient ischemic attack (TIA), and cerebral infarction without residual deficits; G40.909 Epilepsy, unspecified, not intractable, without status epilepticus; R45.1 Restlessness and agitation; Z79.84 Long term (current) use of oral hypoglycemic drugs; T42.6X1A Poisoning by other antiepileptic and sedative-hypnotic drugs, accidental (unintentional), initial encounter; F19.90 Other psychoactive substance use, unspecified, uncomplicated; Y92.230 Patient room in hospital as the place of occurrence of the external cause
CPT/HCPCS: 36415; 73630-TC-RT-FY; 80053; 80061; 80164; 80177; 82962; 83036; 83735; 83880; 84100; 84443; 84484; 85025; 85610; 85651; 85730; 86140; 87040; 87070; 87075; 87205; 93005; 93010; 93306-TC; 93926-TC; 94760; 99285-25; G0480; J0878

== ENCOUNTER 2023-12-17 11:43 | Day surgery (SDC) | payer OTHER ==
[2023-12-17] MEDS: DALBAVANCIN HCL 1,500 MG in DEXTROSE 5%-WATER - 500 ML IVPB ONE (12:36)
[2023-12-17 13:13] VITALS: BP 118/62; PULSE 78; RESP 14; TEMP 97.6
== END 2023-12-17 13:25 | disposition home or self-care (01) ==
LOC: FINFUSION 11:43 → FM/S 11:45 → FINFUSION 13:25
PROVIDERS: ATTEND Internal Medicine
DX: M86.9 Osteomyelitis, unspecified (principal)
CPT/HCPCS: 96365; J0875

== ENCOUNTER 2023-12-24 12:07 | Day surgery (SDC) | payer OTHER ==
[2023-12-24] MEDS: DALBAVANCIN HCL 1,500 MG in DEXTROSE 5%-WATER - 500 ML IVPB ONE (13:28)
[2023-12-24 14:17] VITALS: BP 144/78; PULSE 89; RESP 18; TEMP 98.3
== END 2023-12-24 14:30 | disposition home or self-care (01) ==
LOC: FINFUSION 12:07 → FM/S 12:07 → FINFUSION 14:30
PROVIDERS: ATTEND Internal Medicine
DX: M86.9 Osteomyelitis, unspecified (principal)
CPT/HCPCS: 96365; J0875

== ENCOUNTER 2025-01-30 12:53 | Emergency (ER) | payer OTHER ==
[2025-01-30 13:09] VITALS: BP 156/96; PULSE 73; RESP 18; TEMP 98.4; BMI 26.9
[2025-01-30 13:59] LABS: INR 1.05 (0.83-1.09); PROTHROMBIN TIME (PATIENT) 11.9 SEC (9.7-13.0)
[2025-01-30 14:00] LABS: BASOPHILS # 0.01 x10^3/uL (0.01-0.08); EOSINOPHIL % 1.2 % (0.7-5.8); EOSINOPHILS # 0.07 x10^3/uL (0.04-0.36); HEMATOCRIT 41.7 % (34.1-44.9); HEMOGLOBIN 13.7 g/dL (11.2-15.7); MCHC 32.9 g/dl (32.2-35.5); MEAN PLT VOLUME 10.1 fl (9.4-12.3); MONOCYTE # 0.61 x10^3/uL (0.24-0.86); MONOCYTE % 10.7 % (4.7-12.5); PLATELET COUNT # 268 x10^3/uL (182-369); RDW 12.6 % (12.4-16.6)
[2025-01-30 14:01] LABS: ACTIVATED PTT 35.9 SECONDS (25.2-36.5)
[2025-01-30 14:07] LABS: BILIRUBIN,TOTAL 0.6 mg/dl (0.2-1); CREATININE 0.7 mg/dl (0.6-1.3); POTASSIUM 3.8 mmol/L (3.5-5.1); TOT PROT 6.8 g/dl (6.4-8.2)
[2025-01-30 17:09] LABS: HCV DIAGNOSTIC IN-HOUSE W/RFLX NON-REACTIVE (NONREACTIVE); HIV INTERPRETATION NEGATIVE (NEGATIVE)
== END 2025-01-30 15:55 | disposition home or self-care (01) ==
LOC: FER 12:53
DX: M54.2 Cervicalgia (principal)
CPT/HCPCS: 36415; 80053; 85025; 85610; 85730; 86803; 86850; 86900; 86901; 87389; 93880-TC; 99284-25